=== PATIENT | female | born 1960 ===

== ENCOUNTER 2018-11-06 21:10 | Inpatient (IN) | payer MEDICARE, BC ==
[~2018-11-06] VITALS: Ht 149.9 cm; Wt 42.6 kg
[2018-11-06 21:10] VITALS: BP 151/61
--- NOTE | 2018-11-06 21:10 | Emergency Room Report ---
History of Present Illness General Source: Patient Present Illness HPI Patient is a 58-year-old female presented after malfunctioning of dialysis catheter. Patient reportedly had been dialyzed Sunday and Sunday and had dialysis today. Patient was noted to have dialysis access to the left femoral area. This had apparently become nonfunctional. Patient was noted to have prior history of end-stage renal disease. Allergies: Coded Allergies: No Known Allergies (Unverified , 11/06/18) Patient History Past Medical History: see triage record Reviewed Nursing Documentation: PMH: Agreed; PSxH: Agreed Review of Systems All Other Systems: limited - by poor historian Physical Exam General Appearance: alert, Chronically Ill ENT: moist mucus membranes Neck: limited range of motion Respiratory: normal inspection, lungs clear Cardiovascular #1: normal inspection, regular rate, rhythm Gastrointestinal: normal inspection Musculoskeletal: swelling - left upper extremity edema Neurologic: alert, motor weakness Psychiatric: normal inspection Skin: other - decubitus ulcer Medical Decision Making Diagnostic Impression: Primary Impression: ESRD (end stage renal disease) on dialysis Additional Impressions: Hypokalemia Anemia ER Course Patient presented for generalized weakness. Differential diagnosis includes is not limited to anemia, hyperkalemia, fracture, DVT among others. Because of complexity of patient's case laboratory testing and imaging studies were ordered.Patient was noted to have hypokalemia on laboratory testing. Dr. Palmer was contacted for Dr. Jones for inpatient observation due to dialysis access malfunction and hypokalemia. Labs Test 11/06/18 21:55 White Blood Count 10.6 K/UL (4.8-10.8) Red Blood Count 2.37 M/UL (4.20-5.40) Hemoglobin 7.0 G/DL (12.0-16.0) Hematocrit 21.4 % (37.0-47.0) Mean Corpuscular Volume 90 FL (80-99) Mean Corpuscular Hemoglobin 29.5 PG (27.0-31.0) Mean Corpuscular Hemoglobin Concent 32.8 G/DL (32.0-36.0) Red Cell Distribution Width 14.5 % (11.6-14.8) Platelet Count 213 K/UL (150-450) Mean Platelet Volume 5.6 FL (6.5-10.1) Neutrophils (%) (Auto) % (45.0-75.0) Lymphocytes (%) (Auto) % (20.0-45.0) Monocytes (%) (Auto) % (1.0-10.0) Eosinophils (%) (Auto) % (0.0-3.0) Basophils (%) (Auto) % (0.0-2.0) Differential Total Cells Counted 100 Neutrophils % (Manual) 82 % (45-75) Lymphocytes % (Manual) 9 % (20-45) Monocytes % (Manual) 7 % (1-10) Eosinophils % (Manual) 1 % (0-3) Basophils % (Manual) 1 % (0-2) Band Neutrophils 0 % (0-8) Platelet Estimate Adequate Platelet Morphology Normal Hypochromasia 1+ Anisocytosis 1+ Sodium Level 135 MMOL/L (136-145) Potassium Level 2.2 MMOL/L (3.5-5.1) Chloride Level 98 MMOL/L (98-107) Carbon Dioxide Level 28 MMOL/L (21-32) Anion Gap 8 mmol/L (5-15) Blood Urea Nitrogen 10 mg/dL (7-18) Creatinine 0.8 MG/DL (0.55-1.30) Estimat Glomerular Filtration Rate > 60 mL/min (>60) Glucose Level 145 MG/DL (74-106) Calcium Level 8.3 MG/DL (8.5-10.1) Total Bilirubin 0.3 MG/DL (0.2-1.0) Aspartate Amino Transf (AST/SGOT) 22 U/L (15-37) Alanine Aminotransferase (ALT/SGPT) 28 U/L (12-78) Alkaline Phosphatase 125 U/L (46-116) Troponin I 0.019 ng/mL (0.000-0.056) Total Protein 6.8 G/DL (6.4-8.2) Albumin 2.1 G/DL (3.4-5.0) Globulin 4.7 g/dL Albumin/Globulin Ratio 0.4 (1.0-2.7) EKG Diagnostic Results Rate: normal Rhythm: NSR ST Segments: no acute changes Status: unchanged Disposition: PLACE IN OBSERVATION Condition: Stable Jase Roberts MD Nov 06, 2018 21:10
--- NOTE | 2018-11-06 21:10 | NUR ---
ED Nurse Note: Patient ERIC Medina #14 c/o clogged dialysis catheter in left femoral. Patient completed dialysis today at [facility]. patient presents weith a sweollen left hand that extends all the way to the forearm, patient is awake however is slow to respond to questions. patient has a pressure ulcer located on the lower coccyx, performed wound care by changing dressing and picture taken.
--- NOTE | 2018-11-06 21:15 | NUR ---
ED Nurse Note: upon further skin inspection, patient presents with a g tube and an ostomy bag located on the left lower abdomen
[2018-11-06 22:17] LABS: HEMATOCRIT 21.4 % (37.0-47.0); MEAN CORPUSCULAR VOLUME 90 FL (80-99); PLATELET COUNT 213 K/UL (150-450); RED BLOOD COUNT 2.37 M/UL (4.20-5.40); RED CELL DISTRIBUTION WIDTH 14.5 % (11.6-14.8); WHITE BLOOD COUNT 10.6 K/UL (4.8-10.8)
[2018-11-06 22:26] LABS: ALANINE AMINOTRANSFERASE 28 U/L (12-78); ALBUMIN 2.1 G/DL (3.4-5.0); ALBUMIN/GLOBULIN RATIO 0.4 (1.0-2.7); ALKALINE PHOSPHATASE 125 U/L (46-116); ANION GAP 8 mmol/L (5-15); ASPARTATE AMINO TRANSFERASE 22 U/L (15-37); BILIRUBIN,TOTAL 0.3 MG/DL (0.2-1.0); BLOOD UREA NITROGEN 10 mg/dL (7-18); CALCIUM 8.3 MG/DL (8.5-10.1); CARBON DIOXIDE 28 MMOL/L (21-32); CHLORIDE 98 MMOL/L (98-107); CREATININE 0.8 MG/DL (0.55-1.30); SODIUM 135 MMOL/L (136-145)
[2018-11-06 22:29] LABS: POTASSIUM 2.2 MMOL/L (3.5-5.1)
[2018-11-06 23:22] VITALS: BP 136/46
--- NOTE | 2018-11-06 23:30 | NUR ---
TRANSFER TO FLOOR: Patient transferred to [facility] as ordered, Report given to PAULA Mendoza
[2018-11-06] MEDS ORDERED: PROMOD946 ML PO (23:42)
[2018-11-06] MEDS ORDERED: [UNRECOGNIZED DRUG - OTHER] MC (23:42)
[2018-11-06] MEDS ORDERED: CALCITRIOL1 MCG/1 ML IV (23:42)
[2018-11-06] MEDS ORDERED: LANSOPRAZOLE30 MG ORAL (23:42)
[2018-11-06] MEDS ORDERED: AMLODIPINE BESY10 MG ORAL (23:42)
[2018-11-06] MEDS ORDERED: HYDRALAZINE HCL10 MG ORAL (23:42)
[2018-11-06] MEDS ORDERED: RENA-VITE TABL0.8 M1 PO (23:42)
[2018-11-06] MEDS ORDERED: LEVEMIR FL100 UNIT/2 SQ (23:42)
[2018-11-06] MEDS ORDERED: ASCORBIC ACID500 MG ORAL (23:42)
[2018-11-06] MEDS ORDERED: FLEET ENEMA133 ML RECTAL (23:42)
[2018-11-06] MEDS ORDERED: ACIDOPHILUS1 EAC7 PO (23:42)
[2018-11-06 23:43] LABS: ALANINE AMINOTRANSFERASE 30 U/L (12-78); ALBUMIN 2.1 G/DL (3.4-5.0); ALBUMIN/GLOBULIN RATIO 0.4 (1.0-2.7); ALKALINE PHOSPHATASE 128 U/L (46-116); ANION GAP 10 mmol/L (5-15); ASPARTATE AMINO TRANSFERASE 24 U/L (15-37); BILIRUBIN,TOTAL 0.3 MG/DL (0.2-1.0); BLOOD UREA NITROGEN 11 mg/dL (7-18); CALCIUM 8.4 MG/DL (8.5-10.1); CARBON DIOXIDE 28 MMOL/L (21-32); CHLORIDE 99 MMOL/L (98-107); CREATININE 0.8 MG/DL (0.55-1.30); SODIUM 136 MMOL/L (136-145)
[2018-11-06 23:47] LABS: POTASSIUM 2.3 MMOL/L (3.5-5.1)
--- NOTE | 2018-11-06 23:55 | NUR ---
NURSE NOTES: Received report from Herve Miller RN. regarding patient arrival on TELE floor from ED. Belongings checked and listed at bedside with patient. AAO X2 with no S/S of acute pain or distress noted. IV line intact and patent SL. Patient arrived with GT and colostomy, both intact. Head to toe assessment done at bedside and noted sacral pressure ulcer st III. WC protocol initiated. Safety precaution in place; siderails x3 up, call light within reach, bed in lowest position, brakes and alarm on at all times. Needs and wants anticipated and attended. Will continue plan of care and monitor for any changes noted. Addendum: 11/07/18 at 0538 by ANTONY PECK RN Temporary Left femoral access confirmed. For HD use
[2018-11-07] VITALS (13 sets, daily range): BP systolic 121–142; BP diastolic 48–86
--- NOTE | 2018-11-07 00:20 | NUR ---
NURSE NOTES: Received call from MD. Kana and MD. Nando regarding patients arrival to the unit. New orders received and carried out. Will continue to monitor.
--- NOTE | 2018-11-07 00:25 | NUR ---
NURSE NOTES: Relayed reconciled meds and current labs to MD Nando. New orders received and carried out
[2018-11-07] MEDS ORDERED: HYDROcodone/Acetamin 5/325 tab GT PRN (01:15)
[2018-11-07] MEDS ORDERED: HEPARIN SO5000 UNIT2 SUBQ (01:49)
[2018-11-07] MEDS ORDERED: ZINC SULFATE220 M1 GT (01:49)
[2018-11-07] MEDS ORDERED: DULCOLAX10 MG RC (01:49)
[2018-11-07] MEDS ORDERED: LEVEMIR FL100 UNIT/1 SUBQ (01:49)
[2018-11-07] MEDS ORDERED: MILK OF MA400 MG/51 GT (01:49)
[2018-11-07] MEDS ORDERED: ATORVASTATIN CA80 MG ORAL (01:49)
[2018-11-07] MEDS ORDERED: DOCU LIQUI50 MG/5 M1 GT (01:49)
[2018-11-07] MEDS ORDERED: CITALOPRAM HBR10 M1 GT (01:49)
[2018-11-07] MEDS ORDERED: CALCIUM CARBON500 M1 GT (01:49)
[2018-11-07] MEDS ORDERED: ACETAMINOPHEN325 M1 GT (01:49)
[2018-11-07] MEDS ORDERED: HYDRALAZINE HC100 MG GT (01:51)
[2018-11-07] MEDS ORDERED: Milk of Magnesia 30ml Ud GT PRN (02:00)
[2018-11-07] MEDS ORDERED: CALCITRIOL0.25 MCG GT (02:04)
[2018-11-07] MEDS ORDERED: FLEET ENEMA133 ML RECTAL (02:58)
[2018-11-07] MEDS ORDERED: Fleet's Enema 133ml RECTAL PRN (03:00)
[2018-11-07] MEDS: NovoLOG Insulin Flexpen SUBQ SCH ×4 (06:44→21:33)
[2018-11-07 07:24] LABS: ANION GAP 10 mmol/L (5-15); BLOOD UREA NITROGEN 14 mg/dL (7-18); CALCIUM 7.9 MG/DL (8.5-10.1); CARBON DIOXIDE 26 MMOL/L (21-32); CHLORIDE 99 MMOL/L (98-107); CREATININE 1.1 MG/DL (0.55-1.30); SODIUM 135 MMOL/L (136-145)
[2018-11-07 07:26] LABS: POTASSIUM 2.4 MMOL/L (3.5-5.1)
--- NOTE | 2018-11-07 07:35 | NUR ---
NURSE NOTES: Called and left message for Daniel Zamorano (Spouse) regarding obtaining consent for AV shunt placement. Left contact info and a brief message regarding the procedure. Will continue to monitor
--- NOTE | 2018-11-07 07:44 | NUR ---
HAND-OFF: Report given to Ninfa Bradley RN. patient in stable condition, endorsed plan of care.
--- NOTE | 2018-11-07 07:45 | NUR ---
NURSING NOTE: Bedside report received from Reji MITCHELL. patient A/O x 1, resting with open eyes. no s/s of pain and agitation noted at this time. patient is on 3 L oxygen via N/C sating 96%. pateint scheduled for AV shunt placement.refractory mixer nurse Called and left message for Daniel Zamorano (Spouse) to obtain consent for AV shunt placement. Will continue to monitor
--- NOTE | 2018-11-07 08:15 | NUR ---
Called and left message for Daniel Zamorano (Spouse) to obtain consent for AV shunt placement and waiting for call back
[2018-11-07] MEDS: Docusate 100mg/10ml Liq GT SCH ×2 (08:19→21:29)
[2018-11-07] MEDS: Zinc Sulfate 220mg cap GT SCH ×2 (08:19→21:30)
[2018-11-07] MEDS: Ascorbic Acid 500mg tab GT SCH (08:19)
[2018-11-07] MEDS: Nephrovite tab (Rena-Vite) GT SCH (08:20)
[2018-11-07] MEDS: Tums 500mg GT SCH (08:20)
[2018-11-07] MEDS ORDERED: Calcitriol 0.5mcg Cap GT SCH (09:00)
[2018-11-07] MEDS ORDERED: Fleet's Enema 133ml RECTAL SCH (09:00)
--- NOTE | 2018-11-07 10:01 | Pre-Procedure Note/Attestation ---
Pre-Procedure Note/Attestation Complete Prior to Procedure Planned Procedure: right Procedure Narrative: dialysis shunt placement in right arm; possible dialysis catheter replacement Indications for Procedure Pre-Operative Diagnosis: ESRD; thrombosed old dialysis shunts Attestation I attest that I discussed the nature of the procedure; its benefits; risks and complications; and alternatives (and the risks and benefits of such alternatives ), prior to the procedure, with the patient (or the patient's legal telecommunications sales representative). I attest that, if there was a reasonable possibility of needing a blood transfusion, the patient (or the patient's legal telecommunications sales representative) was given the [facility] standardized written summary, pursuant to the [place] Blood Safety Act ([place] Health and Safety Code # 1645, as amended). I attest that I re-evaluated the patient just prior to the surgery and that there has been no change in the patient's H&P, except as documented below: Heber Roger MD Nov 07, 2018 10:01
--- NOTE | 2018-11-07 11:34 | NUR ---
CASE MANAGEMENT:REVIEW 58 YR OLD FEMALE BIBA FROM [facility] ON HA CC: LT FEMORAL CLOGGED DIALYSIS CATHETER. SWOLLEN LEFT HAND THAT EXTENDS TO FOREARM PMH: ESRD ON HD @ [facility]. GTUBE. OSTOMY BAG SI: HYPOKALEMIA. ANEMIA 98.3 86 16 151/61 98% ON 3L/NC K-2.2 H/H-7.0/21.4 IS: TYLENOL PO X1 KCL 40MEQ X2 : TO TELEMETRY IS: TRANSFUSE 2 UNITS PRBC'S Addendum: 11/07/18 at 1203 by BELL SIERRA LVN LVN INTERQUAL CRITERIA MET
--- NOTE | 2018-11-07 12:06 | Diagnostic Imaging Report ---
APPROVED REPORT CPT Code: G0365 Present Symptoms Comments: Pre-op for AVG or AVF Vein Measurements(cm) Cephalic Basilic Right LeftRight Left 0.25Upper ArmMid Upper Arm0.41 0.20Mid Upper ArmAntecubital Fossa0.43 Upper Forearm0.17 0.24Antecubital FossaWrist VEIN MAPPING: The right cephalic and left basilic veins were imaged and measured to evaluate as a potential graft for dialysis access. RIGHT UPPER EXTREMITY: Imaging reveals patency of the deep venous system and brachial, radial and ulnar arteries. The right cephalic vein was measured. The right basilic (stented) vein is occluded. There is also an occluded graft noted at the upper arm level. LEFT UPPER EXTREMITY: Imaging reveals patency of the deep venous system and brachial, radial and ulnar arteries. The right cephalic vein was thrombosed. The left basilic vein is patent. There is also an occluded arterio-venous fistula noted at the upper arm. The left arm has severe edema, at the upper arm and fore arm level.
[2018-11-07] MEDS ORDERED: Heparin 5000 units/ml inj SUBQ ONE (12:12)
[2018-11-07] MEDS ORDERED: NS 500ML IVPB ONE (12:12)
[2018-11-07] MEDS ORDERED: NS Irrig 1000ml IRRIG ONE (12:12)
[2018-11-07] MEDS ORDERED: Bupivacaine 0.25% Inj 30ml INJ ONE (12:12)
[2018-11-07] MEDS ORDERED: Lidocaine 1% Plain 30 ml INJ ONE (12:12)
--- NOTE | 2018-11-07 13:33 | Anethesia Preoperative Eval ---
Anesthesia Pre-op PMH/ROS General Date of Evaluation: Nov 07, 2018 Time of Evaluation: 11:45 Anesthesiologist: Kaylee Knox CRNA ASA Score: ASA 4 Mallampati Score Class I : Soft palate, uvula, fauces, pillars visible Class II: Soft palate, uvula, fauces visible Class III: Soft palate, base of uvula visible Class IV: Only hard plate visible Mallampati Classification: Class II Surgeon: Kana Diagnosis: Malfunctioning dialysis fistula Surgical Procedure: RIGHT arm A-V fistula Anesthesia History: none Family History: no anesthesia problems Allergies: Coded Allergies: No Known Allergies (Unverified , 11/06/18) Medications: see eMAR Patient NPO?: Yes NPO Date: Nov 07, 2018 NPO Time: 0000 Past Medical History Cardiovascular: Reports: HTN; Denies: CAD, HI, valve dz, arrhythmia, other Pulmonary: Reports: asthma; Denies: COPD, DESIRE, other Gastrointestinal/Genitourinary: Reports: GERD, ESRD - HD q MWF; Denies: CRI, other Neurologic/Psychiatric: Reports: depression/anxiety; Denies: dementia, CVA, TIA, other Endocrine: Reports: DM; Denies: hypothyroidism, steroids, other HEENT: Denies: cataract (L), cataract (R), glaucoma, IROQUOIS (L), IROQUOIS (R), other Hematology/Immune: Reports: anemia - severe anemia, blood transfusion running in preop, other - hypokalemia; Denies: DVT, bleeding disorder Musculoskeletal/Integumentary: Reports: other - lower extremity weakness, severe cachexia; Denies: OA, RA, DJD, DDD, edema PMH Narrative: as noted above PSxH Narrative: ex lap, bowel resection, colostomy Anesthesia Pre-op Phys. Exam Physician Exam Last Vital Signs Date Time Temp Pulse Resp B/P (MAP) Pulse Ox O2 Delivery O2 Flow Rate FiO2 11/07/18 12:39 98.5 84 18 140/86 (104) 96 11/07/18 12:29 Non-Rebreather 11/07/18 00:35 3.0 Constitutional: NAD Neurologic: other - obtunded Cardiovascular: RRR Respiratory: CTA, other - NCO2 Gastrointestinal: S/NT/ND Airway Exam Mallampati Score: Class II MO: full Neck: stiff TMD: 3 FB ROM: full Teeth: intact Dentures: no upper, no lower Anesthesia Pre-op A/P Labs Hematology Test 11/06/18 21:55 White Blood Count 10.6 K/UL (4.8-10.8) Red Blood Count 2.37 M/UL (4.20-5.40) L Hemoglobin 7.0 G/DL (12.0-16.0) L Hematocrit 21.4 % (37.0-47.0) L Mean Corpuscular Volume 90 FL (80-99) Mean Corpuscular Hemoglobin 29.5 PG (27.0-31.0) Mean Corpuscular Hemoglobin Concent 32.8 G/DL (32.0-36.0) Red Cell Distribution Width 14.5 % (11.6-14.8) Platelet Count 213 K/UL (150-450) Mean Platelet Volume 5.6 FL (6.5-10.1) L Neutrophils (%) (Auto) % (45.0-75.0) Lymphocytes (%) (Auto) % (20.0-45.0) Monocytes (%) (Auto) % (1.0-10.0) Eosinophils (%) (Auto) % (0.0-3.0) Basophils (%) (Auto) % (0.0-2.0) Differential Total Cells Counted 100 Neutrophils % (Manual) 82 % (45-75) H Lymphocytes % (Manual) 9 % (20-45) L Monocytes % (Manual) 7 % (1-10) Eosinophils % (Manual) 1 % (0-3) Basophils % (Manual) 1 % (0-2) Band Neutrophils 0 % (0-8) Platelet Estimate Adequate Platelet Morphology Normal Hypochromasia 1+ Anisocytosis 1+ Coagulation Test 11/07/18 05:55 Prothrombin Time 10.3 SEC (9.30-11.50) Prothromb Time International Ratio 1.0 (0.9-1.1) Activated Partial Thromboplast Time 28 SEC (23-33) Chemistry Test 11/06/18 21:55 11/06/18 23:10 11/07/18 05:55 11/07/18 11:28 Sodium Level 135 MMOL/L (136-145) L 136 MMOL/L (136-145) 135 MMOL/L (136-145) L Potassium Level 2.2 MMOL/L (3.5-5.1) *L 2.3 MMOL/L (3.5-5.1) *L 2.4 MMOL/L (3.5-5.1) *L 2.8 MMOL/L (3.5-5.1) L Chloride Level 98 MMOL/L (98-107) 99 MMOL/L (98-107) 99 MMOL/L (98-107) Carbon Dioxide Level 28 MMOL/L (21-32) 28 MMOL/L (21-32) 26 MMOL/L (21-32) Anion Gap 8 mmol/L (5-15) 10 mmol/L (5-15) 10 mmol/L (5-15) Blood Urea Nitrogen 10 mg/dL (7-18) 11 mg/dL (7-18) 14 mg/dL (7-18) Creatinine 0.8 MG/DL (0.55-1.30) 0.8 MG/DL (0.55-1.30) 1.1 MG/DL (0.55-1.30) Estimat Glomerular Filtration Rate > 60 mL/min (>60) > 60 mL/min (>60) 50.7 mL/min (>60) Glucose Level 145 MG/DL (74-106) H 167 MG/DL (74-106) H 141 MG/DL (74-106) H Calcium Level 8.3 MG/DL (8.5-10.1) L 8.4 MG/DL (8.5-10.1) L 7.9 MG/DL (8.5-10.1) L Total Bilirubin 0.3 MG/DL (0.2-1.0) 0.3 MG/DL (0.2-1.0) Aspartate Amino Transf (AST/SGOT) 22 U/L (15-37) 24 U/L (15-37) Alanine Aminotransferase (ALT/SGPT) 28 U/L (12-78) 30 U/L (12-78) Alkaline Phosphatase 125 U/L (46-116) H 128 U/L (46-116) H Troponin I 0.019 ng/mL (0.000-0.056) Total Protein 6.8 G/DL (6.4-8.2) 6.9 G/DL (6.4-8.2) Albumin 2.1 G/DL (3.4-5.0) L 2.1 G/DL (3.4-5.0) L Globulin 4.7 g/dL 4.8 g/dL Albumin/Globulin Ratio 0.4 (1.0-2.7) L 0.4 (1.0-2.7) L Hemoglobin A1c 7.3 % (4.3-6.0) H Accucheck 168 Studies Pre-op Studies: EKG - SR Risk Assessment & Plan Assessment: ASA 4, ok to proceed Plan: MAC Status Change Before Surgery: No Pre-Antibiotics Drug: Kaylee Oquendo CRNA Nov 07, 2018 13:33
[2018-11-07] MEDS ORDERED: Hydromorphone 0.5mg/0.5ml inj IVP PRN (13:45)
--- NOTE | 2018-11-07 13:58 | NUR ---
RD ASSESSMENT & RECOMMENDATIONS SEE CARE ACTIVITY FOR COMPLETE ASSESSMENT DAILY ESTIMATED NEEDS: Needs based on ESRD on HD, wound 39.5kg 35-40 kcals/kg 0323-4776 total kcals 1.25-1.8 g protein/kg 49-71 g total protein Fluid per MD, on HD NUTRITION DIAGNOSIS: 1) Increased kcal and protein needs r/t wound healing and renal dysfunction as evidenced by pt w/ stage 3 sacral wound, w/ ESRD on HD 2) Swallowing difficulty r/t dysphagia as evidenced by pt is GT dep CURRENT TF: NPO ENTERAL NUTRITION RECOMMENDATIONS: NEPRO @35ml/hr x24 hrs to provide 840ml, 1512 kcal, 68g prot (1.7), 611ml free H2O - As medically able rec NEPRO @15ml/hr for 6 hrs. Advance as tolerated 10ml/hr q4-6 hrs to goal. - Flush per MD, HOB over 30 degrees ADDITIONAL RECOMMENDATIONS: 1) Obtain Calibrated bed scale wts PER SNF (11/06/18): HT 60 inches, WT 87# (39.5kg) 2) WOUND CARE: Add RAFAEL BID (2.5g pro each) Cont to add Nephrovite and Vit C daily 3) TF recs as above
--- NOTE | 2018-11-07 14:20 | Brief Operative Note ---
Immediate Post Operative Note Operative Note Pre-op Diagnosis: ESRD; thrombosed old dialysis shunts Procedure: right brachiocephalic AVF creation Post-op Diagnosis: same as pre-op Findings: consistent w/pre-op dx studies Surgeon: Kermit Roger Anesthesiologist: Monserrat Knox CRNA Anesthesia: MAC Specimen: none Complications: none Condition: stable Fluids: see anesth. record Estimated Blood Loss: minimal Drains: none Implant(s) used?: No Heber Roger MD Nov 07, 2018 14:20
--- NOTE | 2018-11-07 14:26 | Immediate Post-Op Evaluation ---
Immediate Post-Op Evalulation Immediate Post-Op Evalulation Procedure: RIGHT arm A-V shunt placement Date of Evaluation: Nov 07, 2018 Time of Evaluation: 14:15 IV Fluids: 0.9NS with 20 meq KCl/L 150 ml Blood Products: 250 ml Estimated Blood Loss: 100 ml Blood Pressure Systolic: 124 Blood Pressure Diastolic: 52 Pulse Rate: 78 Respiratory Rate: 12 O2 Sat by Pulse Oximetry: 99 Temperature (Fahrenheit): 99.5 Pain Score (1-10): 0 Nausea: No Vomiting: No Complications none Patient Status: awake, reacts, patent Hydration Status: adequate Drug: cefazolin 1000 mg IV Given Within 1 Hr of Incision: Yes Time Given: 12:30 Kaylee Knox CRNA Nov 07, 2018 14:26
--- NOTE | 2018-11-07 14:39 | History & Physical ---
History and Physical History & Physicial Present Illness HPI Patient is a 58-year-old female presented after malfunctioning of dialysis catheter. Patient reportedly had been dialyzed Sunday and Sunday and had dialysis today. Patient was noted to have dialysis access to the left femoral area. This had apparently become nonfunctional. Patient was noted to have prior history of end-stage renal disease. Allergies: Coded Allergies: No Known Allergies (Unverified , 11/06/18) Patient History Past Medical History: see triage record Reviewed Nursing Documentation: PMH: Agreed; PSxH: Agreed Review of Systems All Other Systems: limited - by poor historian Physical Exam General Appearance: alert, Chronically Ill ENT: moist mucus membranes Neck: limited range of motion Respiratory: normal inspection, lungs clear Cardiovascular #1: normal inspection, regular rate, rhythm Gastrointestinal: normal inspection Musculoskeletal: swelling - left upper extremity edema, atrophied extre Neurologic: alert, motor weakness Psychiatric: normal inspection Skin: other - decubitus ulcer Lab: Dated November 06 reviewed Meds: Reviewed and reconciled in the chart A/P: 1- ESRD, h.o of , creation of AVF by Vascular Sx 2- Hypokalemia 3- Anemia-Acute 4- Chronic ecephalmalacia 5- DM Plan: Check Anemia panel Potassium supplementation Will monitor labs Nephrology, Dr Hodge will follow D/W Vascular Sx for creation of AVF Umer Collier MD Nov 07, 2018 14:39
--- NOTE | 2018-11-07 14:42 | General Progress Note ---
Assessment/Plan Assessment/Plan: S: not verbally communicative, O: patient seen in [facility]-op area. Denies any chest pain or sob General Appearance: alert, Chronically Ill ENT: moist mucus membranes Neck: limited range of motion Respiratory: normal inspection, lungs clear Cardiovascular #1: normal inspection, regular rate, rhythm Gastrointestinal: normal inspection Musculoskeletal: swelling - left upper extremity edema Neurologic: alert, motor weakness Psychiatric: normal inspection Skin: other - decubitus ulcer Lab: Dated November 06 reviewed Meds: Reviewed and reconciled in the chart A/P: 1- ESRD, h.o of , creation of AVF by Vascular Sx 2- Hypokalemia 3- Anemia-Acute Plan: Check Anemia panel Potassium supplementation S/P creation of AVF Subjective Allergies: Coded Allergies: No Known Allergies (Unverified , 11/06/18) Objective Last 24 Hour Vital Signs Date Time Temp Pulse Resp B/P (MAP) Pulse Ox O2 Delivery O2 Flow Rate FiO2 11/07/18 14:26 78 12 99 11/07/18 12:39 98.5 84 18 140/86 (104) 96 11/07/18 12:29 Non-Rebreather 11/07/18 08:22 84 143/71 11/07/18 04:00 98.1 82 18 136/78 (97) 96 11/07/18 04:00 69 11/07/18 00:35 Nasal Cannula 3.0 11/07/18 00:00 99.0 80 20 142/84 (103) 96 11/07/18 00:00 84 11/06/18 23:30 98.4 11/06/18 23:30 98.4 82 18 136/46 100 Room Air 3.0 11/06/18 23:22 98.4 86 18 136/46 98 Room Air 11/06/18 21:10 86 16 Nasal Cannula 3.0 11/06/18 21:10 98.2 85 16 151/61 98 Nasal Cannula 3.0 11/06/18 21:07 98.2 86 16 151/61 98 Nasal Cannula 3.0 Intake and Output 11/06/18 11/07/18 19:00 07:00 Intake Total 100 ml Balance 100 ml Intake Oral 50 ml Free Water 50 ml Laboratory Tests 11/06/18 21:55: White Blood Count 10.6, Red Blood Count 2.37L, Hemoglobin 7.0L, Hematocrit 21.4L , Mean Corpuscular Volume 90, Mean Corpuscular Hemoglobin 29.5, Mean Corpuscular Hemoglobin Concent 32.8, Red Cell Distribution Width 14.5, Platelet Count 213, Mean Platelet Volume 5.6L, Neutrophils (%) (Auto) , Lymphocytes (%) ( Auto) , Monocytes (%) (Auto) , Eosinophils (%) (Auto) , Basophils (%) (Auto) , Differential Total Cells Counted 100, Neutrophils % (Manual) 82H, Lymphocytes % (Manual) 9L, Monocytes % (Manual) 7, Eosinophils % (Manual) 1, Basophils % ( Manual) 1, Band Neutrophils 0, Platelet Estimate Adequate, Platelet Morphology Normal, Hypochromasia 1+, Anisocytosis 1+, Sodium Level 135L, Potassium Level 2.2*L, Chloride Level 98, Carbon Dioxide Level 28, Anion Gap 8, Blood Urea Nitrogen 10, Creatinine 0.8, Estimat Glomerular Filtration Rate > 60, Glucose Level 145H, Calcium Level 8.3L, Total Bilirubin 0.3, Aspartate Amino Transf (AST /SGOT) 22, Alanine Aminotransferase (ALT/SGPT) 28, Alkaline Phosphatase 125H, Troponin I 0.019, Total Protein 6.8, Albumin 2.1L, Globulin 4.7, Albumin/ Globulin Ratio 0.4L 11/06/18 23:10: Sodium Level 136, Potassium Level 2.3*L, Chloride Level 99, Carbon Dioxide Level 28, Anion Gap 10, Blood Urea Nitrogen 11, Creatinine 0.8, Estimat Glomerular Filtration Rate > 60, Glucose Level 167H, Calcium Level 8.4L, Total Bilirubin 0.3, Aspartate Amino Transf (AST/SGOT) 24, Alanine Aminotransferase ( ALT/SGPT) 30, Alkaline Phosphatase 128H, Total Protein 6.9, Albumin 2.1L, Globulin 4.8, Albumin/Globulin Ratio 0.4L 11/07/18 05:55: Sodium Level 135L, Potassium Level 2.4*L, Chloride Level 99, Carbon Dioxide Level 26, Anion Gap 10, Blood Urea Nitrogen 14, Creatinine 1.1, Estimat Glomerular Filtration Rate 50.7, Glucose Level 141H, Calcium Level 7.9L, Prothrombin Time 10.3, Prothromb Time International Ratio 1.0, Activated Partial Thromboplast Time 28, Hemoglobin A1c 7.3H 11/07/18 11:28: Potassium Level 2.8L Height (Feet): 4 Height (Inches): 11.00 Weight (Pounds): 84 Umer Collier MD Nov 07, 2018 14:42
--- NOTE | 2018-11-07 18:02 | Consultation ---
History of Present Illness General Chief Complaint: General Complaint Present Illness Allergies: Coded Allergies: No Known Allergies (Unverified , 11/06/18) Medication History Scheduled Amlodipine Besylate* (Amlodipine Besylate*), 10 MG ORAL DAILY, (Reported) Ascorbic Acid* (Ascorbic Acid*), 500 MG ORAL DAILY, (Reported) Atorvastatin Calcium* (Lipitor*), 80 MG ORAL BEDTIME, (Reported) Calcitriol (Calcitriol), 0.5 MCG GT DAILY, (Reported) Calcium Carbonate (Calcium Carbonate), 500 MG GT DAILY, (Reported) Citalopram Hydrobromide* (Citalopram Hbr*), 10 MG GT DAILY, (Reported) Docusate Sodium (Docu Liquid), 50 MG GT Q12HR, (Reported) Heparin Sod (Porcine) (Heparin Sodium*), 5,000 UNITS SUBQ EVERY 12 HOURS, ( Reported) Hydralazine Hcl* (Hydralazine Hcl*), 100 MG GT EVERY 8 HOURS, (Reported) Insulin Detemir (Levemir Flexpen), 20 UNITS SUBQ HS, (Reported) Lansoprazole* (Lansoprazole*), 30 MG ORAL DAILY, (Reported) Na Phos,M-B/Na Phos,Di-Ba* (Fleet Enema*), 133 ML RECTAL DAILY, (Reported) Zinc Sulfate (Zinc Sulfate*), 220 MG GT Q12HR, (Reported) Scheduled PRN Acetaminophen* (Acetaminophen 325MG Tablet*), 650 MG GT Q4H PRN for Mild Pain/ Temp > 100.5, (Reported) Bisacodyl (Dulcolax), 10 MG RC DAILY PRN for Constipation, (Reported) Magnesium Hydroxide* (Milk Of Magnesia*), 30 ML GT DAILY PRN for Constipation, ( Reported) Na Phos,M-B/Na Phos,Di-Ba* (Fleet Enema*), 133 ML RECTAL Q72H PRN for cons, ( Reported) Miscellaneous Medications Balsam Stalin ([place] Citizen Balsam), 113 GM MC, (Reported) Folic Acid/Vitamin B Comp W-C (Gayle-Mode Tablet), 0.8 MG PO, (Reported) Lactobacillus Acidophilus (Acidophilus), 1 EACH PO, (Reported) Protein Supplement (Promod), 946 ML PO, (Reported) Patient History Healthcare decision maker Daniel Zamorano Resuscitation status Full Code Advanced Directive on File Yes Physical Exam Last 24 Hour Vital Signs Date Time Temp Pulse Resp B/P (MAP) Pulse Ox O2 Delivery O2 Flow Rate FiO2 11/07/18 17:10 97.9 83 16 126/55 (78) 96 11/07/18 16:00 80 11/07/18 15:15 98.2 73 15 123/55 100 Nasal Cannula 3 11/07/18 15:00 71 14 125/59 100 Nasal Cannula 3 11/07/18 14:55 75 15 121/50 100 Nasal Cannula 3 11/07/18 14:50 76 16 127/52 100 Nasal Cannula 3 11/07/18 14:40 73 14 129/48 100 Nasal Cannula 3 11/07/18 14:30 76 17 125/54 100 Nasal Cannula 3 11/07/18 14:26 78 12 99 11/07/18 14:20 75 15 123/52 100 Nasal Cannula 3 11/07/18 14:15 99.5 78 12 124/53 99 Nasal Cannula 3 11/07/18 12:39 98.5 84 18 140/86 (104) 96 11/07/18 12:29 Non-Rebreather 11/07/18 08:22 84 143/71 11/07/18 08:00 81 11/07/18 04:00 98.1 82 18 136/78 (97) 96 11/07/18 04:00 69 11/07/18 00:35 Nasal Cannula 3.0 11/07/18 00:00 99.0 80 20 142/84 (103) 96 11/07/18 00:00 84 11/06/18 23:30 98.4 11/06/18 23:30 98.4 82 18 136/46 100 Room Air 3.0 11/06/18 23:22 98.4 86 18 136/46 98 Room Air 11/06/18 21:10 86 16 Nasal Cannula 3.0 11/06/18 21:10 98.2 85 16 151/61 98 Nasal Cannula 3.0 11/06/18 21:07 98.2 86 16 151/61 98 Nasal Cannula 3.0 Intake and Output 11/06/18 11/07/18 18:59 06:59 Intake Total 100 ml Balance 100 ml Intake Oral 50 ml Free Water 50 ml Laboratory Tests Test 11/06/18 21:55 11/06/18 23:10 11/07/18 05:55 11/07/18 11:28 White Blood Count 10.6 K/UL (4.8-10.8) Red Blood Count 2.37 M/UL (4.20-5.40) L Hemoglobin 7.0 G/DL (12.0-16.0) L Hematocrit 21.4 % (37.0-47.0) L Mean Corpuscular Volume 90 FL (80-99) Mean Corpuscular Hemoglobin 29.5 PG (27.0-31.0) Mean Corpuscular Hemoglobin Concent 32.8 G/DL (32.0-36.0) Red Cell Distribution Width 14.5 % (11.6-14.8) Platelet Count 213 K/UL (150-450) Mean Platelet Volume 5.6 FL (6.5-10.1) L Neutrophils (%) (Auto) % (45.0-75.0) Lymphocytes (%) (Auto) % (20.0-45.0) Monocytes (%) (Auto) % (1.0-10.0) Eosinophils (%) (Auto) % (0.0-3.0) Basophils (%) (Auto) % (0.0-2.0) Differential Total Cells Counted 100 Neutrophils % (Manual) 82 % (45-75) H Lymphocytes % (Manual) 9 % (20-45) L Monocytes % (Manual) 7 % (1-10) Eosinophils % (Manual) 1 % (0-3) Basophils % (Manual) 1 % (0-2) Band Neutrophils 0 % (0-8) Platelet Estimate Adequate Platelet Morphology Normal Hypochromasia 1+ Anisocytosis 1+ Sodium Level 135 MMOL/L (136-145) L 136 MMOL/L (136-145) 135 MMOL/L (136-145) L Potassium Level 2.2 MMOL/L (3.5-5.1) *L 2.3 MMOL/L (3.5-5.1) *L 2.4 MMOL/L (3.5-5.1) *L 2.8 MMOL/L (3.5-5.1) L Chloride Level 98 MMOL/L (98-107) 99 MMOL/L (98-107) 99 MMOL/L (98-107) Carbon Dioxide Level 28 MMOL/L (21-32) 28 MMOL/L (21-32) 26 MMOL/L (21-32) Anion Gap 8 mmol/L (5-15) 10 mmol/L (5-15) 10 mmol/L (5-15) Blood Urea Nitrogen 10 mg/dL (7-18) 11 mg/dL (7-18) 14 mg/dL (7-18) Creatinine 0.8 MG/DL (0.55-1.30) 0.8 MG/DL (0.55-1.30) 1.1 MG/DL (0.55-1.30) Estimat Glomerular Filtration Rate > 60 mL/min (>60) > 60 mL/min (>60) 50.7 mL/min (>60) Glucose Level 145 MG/DL (74-106) H 167 MG/DL (74-106) H 141 MG/DL (74-106) H Calcium Level 8.3 MG/DL (8.5-10.1) L 8.4 MG/DL (8.5-10.1) L 7.9 MG/DL (8.5-10.1) L Total Bilirubin 0.3 MG/DL (0.2-1.0) 0.3 MG/DL (0.2-1.0) Aspartate Amino Transf (AST/SGOT) 22 U/L (15-37) 24 U/L (15-37) Alanine Aminotransferase (ALT/SGPT) 28 U/L (12-78) 30 U/L (12-78) Alkaline Phosphatase 125 U/L (46-116) H 128 U/L (46-116) H Troponin I 0.019 ng/mL (0.000-0.056) Total Protein 6.8 G/DL (6.4-8.2) 6.9 G/DL (6.4-8.2) Albumin 2.1 G/DL (3.4-5.0) L 2.1 G/DL (3.4-5.0) L Globulin 4.7 g/dL 4.8 g/dL Albumin/Globulin Ratio 0.4 (1.0-2.7) L 0.4 (1.0-2.7) L Prothrombin Time 10.3 SEC (9.30-11.50) Prothromb Time International Ratio 1.0 (0.9-1.1) Activated Partial Thromboplast Time 28 SEC (23-33) Hemoglobin A1c 7.3 % (4.3-6.0) H Height (Feet): 4 Height (Inches): 11.00 Weight (Pounds): 84 Medications Current Medications Medications (Trade) Dose Ordered Sig/Vineet Route PRN Reason Start Time Stop Time Status Last Admin Dose Admin Acetaminophen (Tylenol) 650 mg Q4H PRN GT Mild Pain/Temp > 100.5 11/07/18 01:15 12/07/18 01:14 Acetaminophen/ Hydrocodone Bitart ([place] 5/325) 1 tab TID PRN GT Moderate Pain (Pain Scale 4-6) 11/07/18 01:15 11/14/18 01:14 Amlodipine Besylate (Norvasc) 10 mg DAILY GT 11/07/18 09:00 12/07/18 08:59 11/07/18 08:22 Ascorbic Acid (Vitamin C) 500 mg DAILY GT 11/07/18 09:00 12/07/18 08:59 11/07/18 08:19 Atorvastatin Calcium (Lipitor) 80 mg BEDTIME GT 11/07/18 21:00 12/07/18 20:59 Bisacodyl (Dulcolax) 10 mg DAILY PRN RECTAL Constipation 11/07/18 02:30 12/07/18 01:59 Calcitriol (Rocaltrol) 0.5 mcg DAILY GT 11/07/18 09:00 12/07/18 08:59 Calcium Carbonate (Tums) 500 mg DAILY GT 11/07/18 09:00 12/07/18 08:59 11/07/18 08:20 Dextrose (Dextrose 50%) 25 ml Q30M PRN IV Hypoglycemia 11/07/18 02:00 12/07/18 01:59 Dextrose (Dextrose 50%) 50 ml Q30M PRN IV Hypoglycemia 11/07/18 02:00 12/07/18 01:59 Docusate Sodium (Colace) 50 mg Q12HR GT 11/07/18 09:00 12/07/18 08:59 11/07/18 08:19 Heparin Sodium (Porcine) (Heparin 5000 units/ml) 5,000 units EVERY 12 HOURS SUBQ 4/25/19 21:00 12/07/18 20:59 Hydralazine HCl (Apresoline) 5 mg Q30M PRN IV SBP>160 OR___/DBP>90 OR___ 11/07/18 13:45 11/07/18 20:00 Hydromorphone HCl (Dilaudid) 0.5 mg Q15M PRN IVP Severe Pain (Pain Scale 7-10) 11/07/18 13:45 11/07/18 20:00 Insulin Aspart (NovoLOG) BEFORE MEALS AND HS SUBQ 11/07/18 06:30 12/07/18 06:29 11/07/18 06:44 Insulin Detemir (Levemir) 20 units QHS SUBQ 11/07/18 21:00 12/07/18 20:59 Lansoprazole (Prevacid) 30 mg DAILY GT 11/07/18 09:00 12/07/18 08:59 11/07/18 08:19 Magnesium Hydroxide (Mom) 30 ml DAILY PRN GT Constipation 11/07/18 02:00 12/07/18 01:59 Potassium Chloride (K-Dur) 40 meq Q4H ORAL 11/07/18 15:00 11/07/18 19:01 11/07/18 16:02 Sodium Phosphate (Fleet's Sodium Phosl Enema) 133 ml Q72H PRN RECTAL Constipation 11/07/18 03:00 12/07/18 02:59 Vitamin B Complex/ Vit C/Folic Acid (Nephrovite) 1 tab DAILY GT 11/07/18 09:00 12/07/18 08:59 11/07/18 08:20 Zinc Sulfate (Zinc Sulfate) 220 mg Q12HR GT 11/07/18 09:00 12/07/18 08:59 11/07/18 08:19 Assessment/Plan Assessment/Plan: Hematology Consult ANTHONY SANCHEZ: Portia Collier DOS: 11/07/18 RFC: Anemia evaluation, hgb 7 HPI Patient is a 58-year-old female presented after malfunctioning of dialysis catheter. Patient reportedly had been dialyzed Sunday and Sunday and had dialysis today. Patient was noted to have dialysis access to the left femoral area. This had apparently become nonfunctional. Patient was noted to have prior history of end-stage renal disease. Is here for creation of avd right bracheocephalic, vascular surgery has been consulted. Coded Allergies: No Known Allergies (Unverified , 11/06/18) Patient History Past Medical History: see triage record Reviewed Nursing Documentation: PMH: Agreed; PSxH: Agreed Review Of Systems: limited - by poor historian Pe General Appearance: alert, Chronically Ill ENT: moist mucus membranes Neck: limited range of motion Respiratory: normal inspection, lungs clear Cardiovascular: normal inspection, regular rate, rhythm Gastrointestinal: normal inspection Musculoskeletal: swelling - left upper extremity edema Neurologic: alert, motor weakness Psychiatric: normal inspection Skin: other - decubitus ulcer Laboratory Tests Test 11/06/18 21:55 11/06/18 23:10 11/07/18 05:55 11/07/18 11:28 White Blood Count 10.6 K/UL (4.8-10.8) Red Blood Count 2.37 M/UL (4.20-5.40) L Hemoglobin 7.0 G/DL (12.0-16.0) L Hematocrit 21.4 % (37.0-47.0) L Mean Corpuscular Volume 90 FL (80-99) Mean Corpuscular Hemoglobin 29.5 PG (27.0-31.0) Mean Corpuscular Hemoglobin Concent 32.8 G/DL (32.0-36.0) Red Cell Distribution Width 14.5 % (11.6-14.8) Platelet Count 213 K/UL (150-450) Mean Platelet Volume 5.6 FL (6.5-10.1) L Neutrophils (%) (Auto) % (45.0-75.0) Lymphocytes (%) (Auto) % (20.0-45.0) Monocytes (%) (Auto) % (1.0-10.0) Eosinophils (%) (Auto) % (0.0-3.0) Basophils (%) (Auto) % (0.0-2.0) Differential Total Cells Counted 100 Neutrophils % (Manual) 82 % (45-75) H Lymphocytes % (Manual) 9 % (20-45) L Monocytes % (Manual) 7 % (1-10) Eosinophils % (Manual) 1 % (0-3) Basophils % (Manual) 1 % (0-2) Band Neutrophils 0 % (0-8) Platelet Estimate Adequate Platelet Morphology Normal Hypochromasia 1+ Anisocytosis 1+ Sodium Level 135 MMOL/L (136-145) L 136 MMOL/L (136-145) 135 MMOL/L (136-145) L Potassium Level 2.2 MMOL/L (3.5-5.1) *L 2.3 MMOL/L (3.5-5.1) *L 2.4 MMOL/L (3.5-5.1) *L 2.8 MMOL/L (3.5-5.1) L Chloride Level 98 MMOL/L (98-107) 99 MMOL/L (98-107) 99 MMOL/L (98-107) Carbon Dioxide Level 28 MMOL/L (21-32) 28 MMOL/L (21-32) 26 MMOL/L (21-32) Anion Gap 8 mmol/L (5-15) 10 mmol/L (5-15) 10 mmol/L (5-15) Blood Urea Nitrogen 10 mg/dL (7-18) 11 mg/dL (7-18) 14 mg/dL (7-18) Creatinine 0.8 MG/DL (0.55-1.30) 0.8 MG/DL (0.55-1.30) 1.1 MG/DL (0.55-1.30) Estimat Glomerular Filtration Rate > 60 mL/min (>60) > 60 mL/min (>60) 50.7 mL/min (>60) Glucose Level 145 MG/DL (74-106) H 167 MG/DL (74-106) H 141 MG/DL (74-106) H Calcium Level 8.3 MG/DL (8.5-10.1) L 8.4 MG/DL (8.5-10.1) L 7.9 MG/DL (8.5-10.1) L Total Bilirubin 0.3 MG/DL (0.2-1.0) 0.3 MG/DL (0.2-1.0) Aspartate Amino Transf (AST/SGOT) 22 U/L (15-37) 24 U/L (15-37) Alanine Aminotransferase (ALT/SGPT) 28 U/L (12-78) 30 U/L (12-78) Alkaline Phosphatase 125 U/L (46-116) H 128 U/L (46-116) H Troponin I 0.019 ng/mL (0.000-0.056) Total Protein 6.8 G/DL (6.4-8.2) 6.9 G/DL (6.4-8.2) Albumin 2.1 G/DL (3.4-5.0) L 2.1 G/DL (3.4-5.0) L Globulin 4.7 g/dL 4.8 g/dL Albumin/Globulin Ratio 0.4 (1.0-2.7) L 0.4 (1.0-2.7) L Prothrombin Time 10.3 SEC (9.30-11.50) Prothromb Time International Ratio 1.0 (0.9-1.1) Activated Partial Thromboplast Time 28 SEC (23-33) Hemoglobin A1c 7.3 % (4.3-6.0) H Current Medications Medications (Trade) Dose Ordered Sig/Vineet Route PRN Reason Start Time Stop Time Status Last Admin Dose Admin Acetaminophen (Tylenol) 650 mg Q4H PRN GT Mild Pain/Temp > 100.5 11/07/18 01:15 12/07/18 01:14 Acetaminophen/ Hydrocodone Bitart ([place] 5/325) 1 tab TID PRN GT Moderate Pain (Pain Scale 4-6) 11/07/18 01:15 11/14/18 01:14 Amlodipine Besylate (Norvasc) 10 mg DAILY GT 11/07/18 09:00 12/07/18 08:59 11/07/18 08:22 Ascorbic Acid (Vitamin C) 500 mg DAILY GT 11/07/18 09:00 12/07/18 08:59 11/07/18 08:19 Atorvastatin Calcium (Lipitor) 80 mg BEDTIME GT 11/07/18 21:00 12/07/18 20:59 Bisacodyl (Dulcolax) 10 mg DAILY PRN RECTAL Constipation 11/07/18 02:30 12/07/18 01:59 Calcitriol (Rocaltrol) 0.5 mcg DAILY GT 11/07/18 09:00 12/07/18 08:59 Calcium Carbonate (Tums) 500 mg DAILY GT 11/07/18 09:00 12/07/18 08:59 11/07/18 08:20 Dextrose (Dextrose 50%) 25 ml Q30M PRN IV Hypoglycemia 11/07/18 02:00 12/07/18 01:59 Dextrose (Dextrose 50%) 50 ml Q30M PRN IV Hypoglycemia 11/07/18 02:00 12/07/18 01:59 Docusate Sodium (Colace) 50 mg Q12HR GT 11/07/18 09:00 12/07/18 08:59 11/07/18 08:19 Heparin Sodium (Porcine) (Heparin 5000 units/ml) 5,000 units EVERY 12 HOURS SUBQ 11/07/18 21:00 12/07/18 20:59 Hydralazine HCl (Apresoline) 5 mg Q30M PRN IV SBP>160 OR___/DBP>90 OR___ 11/07/18 13:45 11/07/18 20:00 Hydromorphone HCl (Dilaudid) 0.5 mg Q15M PRN IVP Severe Pain (Pain Scale 7-10) 11/07/18 13:45 11/07/18 20:00 Insulin Aspart (NovoLOG) BEFORE MEALS AND HS SUBQ 11/07/18 06:30 12/07/18 06:29 11/07/18 06:44 Insulin Detemir (Levemir) 20 units QHS SUBQ 11/07/18 21:00 12/07/18 20:59 Lansoprazole (Prevacid) 30 mg DAILY GT 11/07/18 09:00 12/07/18 08:59 11/07/18 08:19 Magnesium Hydroxide (Mom) 30 ml DAILY PRN GT Constipation 11/07/18 02:00 12/07/18 01:59 Potassium Chloride (K-Dur) 40 meq Q4H ORAL 11/07/18 15:00 11/07/18 19:01 11/07/18 16:02 Sodium Phosphate (Fleet's Sodium Phosl Enema) 133 ml Q72H PRN RECTAL Constipation 11/07/18 03:00 12/07/18 02:59 Vitamin B Complex/ Vit C/Folic Acid (Nephrovite) 1 tab DAILY GT 11/07/18 09:00 12/07/18 08:59 11/07/18 08:20 Zinc Sulfate (Zinc Sulfate) 220 mg Q12HR GT 11/07/18 09:00 5/25/19 08:59 11/07/18 08:19 A/P: # Anemia of chronic disease (or of iron deficiency) due to underlying chronic medical issues, multifactorial --> Anemia workup has been ordered, rule out gi bleed --> No evidence of hemolysis is noted, peripheral smear has been reviewed. --> Hgb goal >7. Transfuse prn. --> Epogen or iron at this time is not particularly indicated --> Medications have been reviewed --> evaluate with Gi team prn --> transfuse if hgb is < 7 (will trend CBC daily) --> low threshold for gi evaluation in case has occult + # ESRD, h.o of , creation of AVF by Vascular Sx --> evaluation with vascular surgery --> also may need iron based on anemia results --> hd as per renal # Hypokalemia --> replete with K as needed per renal # Secondary hyperparathyroidism --> ca supplementation as needed and renal recs The timing of this note does not necessarily reflect the time of the patient was seen. Greatly appreciate consultation! Jayden Hernandez MD Nov 07, 2018 18:02
--- NOTE | 2018-11-07 19:15 | NUR ---
NURSE NOTES: Pt is sleeping in the bed w/o respiratory distress in 3L NC, easily arousable by voice stimuli. Sign for no BP, No Vanipucture on R. Arm, L. Arm No BP. L. Arm +4 edema noted. SR in the monitor. Bed is in the lowest position and breaks are engaged. Call light and side table are w/in reach. Will follow plans of care.
--- NOTE | 2018-11-07 19:34 | Consultation ---
History of Present Illness General Date patient seen: Nov 07, 2018 Chief Complaint: General Complaint Present Illness HPI 58 y/o female from [facility], admitted after av fistula creation. Pt. has esrd, on / / schedule, also has groin temporary dialysis catheter. She is currently post op, tolerating tube feeds, denies pain, no cp/sob/n/v/f/c. Allergies: Coded Allergies: No Known Allergies (Unverified , 11/06/18) Medication History Scheduled Amlodipine Besylate* (Amlodipine Besylate*), 10 MG ORAL DAILY, (Reported) Ascorbic Acid* (Ascorbic Acid*), 500 MG ORAL DAILY, (Reported) Atorvastatin Calcium* (Lipitor*), 80 MG ORAL BEDTIME, (Reported) Calcitriol (Calcitriol), 0.5 MCG GT DAILY, (Reported) Calcium Carbonate (Calcium Carbonate), 500 MG GT DAILY, (Reported) Citalopram Hydrobromide* (Citalopram Hbr*), 10 MG GT DAILY, (Reported) Docusate Sodium (Docu Liquid), 50 MG GT Q12HR, (Reported) Heparin Sod (Porcine) (Heparin Sodium*), 5,000 UNITS SUBQ EVERY 12 HOURS, ( Reported) Hydralazine Hcl* (Hydralazine Hcl*), 100 MG GT EVERY 8 HOURS, (Reported) Insulin Detemir (Levemir Flexpen), 20 UNITS SUBQ HS, (Reported) Lansoprazole* (Lansoprazole*), 30 MG ORAL DAILY, (Reported) Na Phos,M-B/Na Phos,Di-Ba* (Fleet Enema*), 133 ML RECTAL DAILY, (Reported) Zinc Sulfate (Zinc Sulfate*), 220 MG GT Q12HR, (Reported) Scheduled PRN Acetaminophen* (Acetaminophen 325MG Tablet*), 650 MG GT Q4H PRN for Mild Pain/ Temp > 100.5, (Reported) Bisacodyl (Dulcolax), 10 MG RC DAILY PRN for Constipation, (Reported) Magnesium Hydroxide* (Milk Of Magnesia*), 30 ML GT DAILY PRN for Constipation, ( Reported) Na Phos,M-B/Na Phos,Di-Ba* (Fleet Enema*), 133 ML RECTAL Q72H PRN for cons, ( Reported) Miscellaneous Medications Balsam [place] (Bh[place] Balsam), 113 GM MC, (Reported) Folic Acid/Vitamin B Comp W-C (Gayle-Mode Tablet), 0.8 MG PO, (Reported) Lactobacillus Acidophilus (Acidophilus), 1 EACH PO, (Reported) Protein Supplement (Promod), 946 ML PO, (Reported) Medications Narrative SEE list reviewed Patient History Healthcare decision maker Daniel Zamorano Resuscitation status Full Code Advanced Directive on File Yes Past Medical/Surgical History Past Medical/Surgical History: (1) Malfunction of arteriovenous dialysis fistula (2) Hypokalemia (3) Anemia (4) ESRD (end stage renal disease) on dialysis Social History Social History: (1) Non-tobacco user Review of Systems Constitutional: Reports: malaise, weakness Eye: Denies: no symptoms, see HPI, eye pain, blurred vision, tearing, double vision, nose pain, nose congestion, acuity changes, discharge, other ENT: Denies: no symptoms, see HPI, ear pain, ear discharge, nose pain, nose congestion, throat pain, throat swelling, mouth pain, hearing loss, nasal discharge, other Respiratory: Reports: cough, PATTEN Cardiovascular: Denies: no symptoms, see HPI, chest pain, edema, palpitations, syncope, PND, other Gastrointestinal: Denies: no symptoms, see HPI, abdominal pain, constipation, diarrhea, nausea, vomiting, melena, hematemesis, other Skin: Denies: no symptoms, see HPI, rash, change in color, change in hair/nails , dryness, lesions, other Psychiatric: Denies: no symptoms, see HPI, prior hx, anxiety, depressed feelings, emotional problems, SI, HI, hallucinations, other Neurological: Denies: no symptoms, see HPI, headache, numbness, paresthesia, seizure, tingling, tremors, focal weakness, syncope, dizziness, other Physical Exam General Appearance: no apparent distress, confused Lines, tubes and drains: central line, shunt, dialysis access HEENT: normocephalic, atraumatic, anicteric, mucous membranes moist, PERRL Neck: non-tender, supple Respiratory/Chest: decreased breath sounds Cardiovascular/Chest: normal rate Abdomen: soft Genitourinary/Rectal: normal genital exam Extremities: non-tender Skin Exam: warm/dry 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 Last 24 Hour Vital Signs Date Time Temp Pulse Resp B/P (MAP) Pulse Ox O2 Delivery O2 Flow Rate FiO2 11/07/18 17:10 97.9 83 16 126/55 (78) 96 11/07/18 16:00 80 11/07/18 15:15 98.2 73 15 123/55 100 Nasal Cannula 3 11/07/18 15:00 71 14 125/59 100 Nasal Cannula 3 11/07/18 14:55 75 15 121/50 100 Nasal Cannula 3 11/07/18 14:50 76 16 127/52 100 Nasal Cannula 3 11/07/18 14:40 73 14 129/48 100 Nasal Cannula 3 11/07/18 14:30 76 17 125/54 100 Nasal Cannula 3 11/07/18 14:26 78 12 99 11/07/18 14:20 75 15 123/52 100 Nasal Cannula 3 11/07/18 14:15 99.5 78 12 124/53 99 Nasal Cannula 3 11/07/18 12:39 98.5 84 18 140/86 (104) 96 11/07/18 12:29 Non-Rebreather 11/07/18 08:22 84 143/71 11/07/18 08:00 81 11/07/18 04:00 98.1 82 18 136/78 (97) 96 11/07/18 04:00 69 11/07/18 00:35 Nasal Cannula 3.0 11/07/18 00:00 99.0 80 20 142/84 (103) 96 11/07/18 00:00 84 11/06/18 23:30 98.4 11/06/18 23:30 98.4 82 18 136/46 100 Room Air 3.0 11/06/18 23:22 98.4 86 18 136/46 98 Room Air 11/06/18 21:10 86 16 Nasal Cannula 3.0 11/06/18 21:10 98.2 85 16 151/61 98 Nasal Cannula 3.0 11/06/18 21:07 98.2 86 16 151/61 98 Nasal Cannula 3.0 Intake and Output 11/06/18 11/07/18 18:59 06:59 Intake Total 100 ml Balance 100 ml Intake Oral 50 ml Free Water 50 ml Laboratory Tests Test 11/06/18 21:55 11/06/18 23:10 11/07/18 05:55 11/07/18 11:28 White Blood Count 10.6 K/UL (4.8-10.8) Red Blood Count 2.37 M/UL (4.20-5.40) L Hemoglobin 7.0 G/DL (12.0-16.0) L Hematocrit 21.4 % (37.0-47.0) L Mean Corpuscular Volume 90 FL (80-99) Mean Corpuscular Hemoglobin 29.5 PG (27.0-31.0) Mean Corpuscular Hemoglobin Concent 32.8 G/DL (32.0-36.0) Red Cell Distribution Width 14.5 % (11.6-14.8) Platelet Count 213 K/UL (150-450) Mean Platelet Volume 5.6 FL (6.5-10.1) L Neutrophils (%) (Auto) % (45.0-75.0) Lymphocytes (%) (Auto) % (20.0-45.0) Monocytes (%) (Auto) % (1.0-10.0) Eosinophils (%) (Auto) % (0.0-3.0) Basophils (%) (Auto) % (0.0-2.0) Differential Total Cells Counted 100 Neutrophils % (Manual) 82 % (45-75) H Lymphocytes % (Manual) 9 % (20-45) L Monocytes % (Manual) 7 % (1-10) Eosinophils % (Manual) 1 % (0-3) Basophils % (Manual) 1 % (0-2) Band Neutrophils 0 % (0-8) Platelet Estimate Adequate Platelet Morphology Normal Hypochromasia 1+ Anisocytosis 1+ Sodium Level 135 MMOL/L (136-145) L 136 MMOL/L (136-145) 135 MMOL/L (136-145) L Potassium Level 2.2 MMOL/L (3.5-5.1) *L 2.3 MMOL/L (3.5-5.1) *L 2.4 MMOL/L (3.5-5.1) *L 2.8 MMOL/L (3.5-5.1) L Chloride Level 98 MMOL/L (98-107) 99 MMOL/L (98-107) 99 MMOL/L (98-107) Carbon Dioxide Level 28 MMOL/L (21-32) 28 MMOL/L (21-32) 26 MMOL/L (21-32) Anion Gap 8 mmol/L (5-15) 10 mmol/L (5-15) 10 mmol/L (5-15) Blood Urea Nitrogen 10 mg/dL (7-18) 11 mg/dL (7-18) 14 mg/dL (7-18) Creatinine 0.8 MG/DL (0.55-1.30) 0.8 MG/DL (0.55-1.30) 1.1 MG/DL (0.55-1.30) Estimat Glomerular Filtration Rate > 60 mL/min (>60) > 60 mL/min (>60) 50.7 mL/min (>60) Glucose Level 145 MG/DL (74-106) H 167 MG/DL (74-106) H 141 MG/DL (74-106) H Calcium Level 8.3 MG/DL (8.5-10.1) L 8.4 MG/DL (8.5-10.1) L 7.9 MG/DL (8.5-10.1) L Total Bilirubin 0.3 MG/DL (0.2-1.0) 0.3 MG/DL (0.2-1.0) Aspartate Amino Transf (AST/SGOT) 22 U/L (15-37) 24 U/L (15-37) Alanine Aminotransferase (ALT/SGPT) 28 U/L (12-78) 30 U/L (12-78) Alkaline Phosphatase 125 U/L (46-116) H 128 U/L (46-116) H Troponin I 0.019 ng/mL (0.000-0.056) Total Protein 6.8 G/DL (6.4-8.2) 6.9 G/DL (6.4-8.2) Albumin 2.1 G/DL (3.4-5.0) L 2.1 G/DL (3.4-5.0) L Globulin 4.7 g/dL 4.8 g/dL Albumin/Globulin Ratio 0.4 (1.0-2.7) L 0.4 (1.0-2.7) L Prothrombin Time 10.3 SEC (9.30-11.50) Prothromb Time International Ratio 1.0 (0.9-1.1) Activated Partial Thromboplast Time 28 SEC (23-33) Hemoglobin A1c 7.3 % (4.3-6.0) H Height (Feet): 4 Height (Inches): 11.00 Weight (Pounds): 84 Medications Current Medications Medications (Trade) Dose Ordered Sig/Vineet Route PRN Reason Start Time Stop Time Status Last Admin Dose Admin Acetaminophen (Tylenol) 650 mg Q4H PRN GT Mild Pain/Temp > 100.5 11/07/18 01:15 12/07/18 01:14 Acetaminophen/ Hydrocodone Bitart ([place] 5/325) 1 tab TID PRN GT Moderate Pain (Pain Scale 4-6) 11/07/18 01:15 11/14/18 01:14 Amlodipine Besylate (Norvasc) 10 mg DAILY GT 11/07/18 09:00 12/07/18 08:59 11/07/18 08:22 Ascorbic Acid (Vitamin C) 500 mg DAILY GT 11/07/18 09:00 12/07/18 08:59 11/07/18 08:19 Atorvastatin Calcium (Lipitor) 80 mg BEDTIME GT 11/07/18 21:00 12/07/18 20:59 Bisacodyl (Dulcolax) 10 mg DAILY PRN RECTAL Constipation 11/07/18 02:30 12/07/18 01:59 Calcitriol (Rocatrol) 0.5 mcg DAILY GT 11/08/18 09:00 12/08/18 08:59 Calcium Carbonate (Tums) 500 mg DAILY GT 11/07/18 09:00 12/07/18 08:59 11/07/18 08:20 Dextrose (Dextrose 50%) 25 ml Q30M PRN IV Hypoglycemia 11/07/18 02:00 12/07/18 01:59 Dextrose (Dextrose 50%) 50 ml Q30M PRN IV Hypoglycemia 11/07/18 02:00 12/07/18 01:59 Docusate Sodium (Colace) 50 mg Q12HR GT 11/07/18 09:00 12/07/18 08:59 11/07/18 08:19 Heparin Sodium (Porcine) (Heparin 5000 units/ml) 5,000 units EVERY 12 HOURS SUBQ 11/07/18 21:00 12/07/18 20:59 Hydralazine HCl (Apresoline) 5 mg Q30M PRN IV SBP>160 OR___/DBP>90 OR___ 11/07/18 13:45 11/07/18 20:00 Hydromorphone HCl (Dilaudid) 0.5 mg Q15M PRN IVP Severe Pain (Pain Scale 7-10) 11/07/18 13:45 11/07/18 20:00 Insulin Aspart (NovoLOG) BEFORE MEALS AND HS SUBQ 11/07/18 06:30 12/07/18 06:29 11/07/18 06:44 Insulin Detemir (Levemir) 20 units QHS SUBQ 11/07/18 21:00 12/07/18 20:59 Lansoprazole (Prevacid) 30 mg DAILY GT 11/07/18 09:00 12/07/18 08:59 11/07/18 08:19 Magnesium Hydroxide (Mom) 30 ml DAILY PRN GT Constipation 11/07/18 02:00 12/07/18 01:59 Sodium Phosphate (Fleet's Sodium Phosl Enema) 133 ml Q72H PRN RECTAL Constipation 11/07/18 03:00 12/07/18 02:59 Vitamin B Complex/ Vit C/Folic Acid (Nephrovite) 1 tab DAILY GT 11/07/18 09:00 12/07/18 08:59 11/07/18 08:20 Zinc Sulfate (Zinc Sulfate) 220 mg Q12HR GT 11/07/18 09:00 12/07/18 08:59 11/07/18 08:19 Assessment/Plan Problem List: (1) Hypokalemia Assessment & Plan: -repleted po ICD Codes: E87.6 - Hypokalemia; Z99.2 - Dependence on renal dialysis SNOMED: 54529008 (2) Anemia Assessment & Plan: - epogen as needed with hd ICD Codes: D64.9 - Anemia, unspecified SNOMED: 422269690 (3) ESRD (end stage renal disease) on dialysis Assessment & Plan: -plan hd in am -watch volume status -adjust meds to lower crcl ICD Codes: N18.6 - End stage renal disease; Z99.2 - Dependence on renal dialysis SNOMED: 828007326 (4) Malfunction of arteriovenous dialysis fistula Assessment & Plan: -s/p surgery, watch access ICD Codes: T82.590A - Other mechanical complication of surgically created arteriovenous fistula, initial encounter SNOMED: 606425491 Status: stable Raphael Conte M.D. Nov 07, 2018 19:34
--- NOTE | 2018-11-07 19:46 | NUR ---
HAND-OFF: Report given to Elza MITCHELL. Addendum: 11/07/18 at 1947 by CELSA LISA RN RN Report given to Shruthi TALLEY RN.
--- NOTE | 2018-11-07 20:31 | Consultation ---
History of Present Illness General Date patient seen: Nov 07, 2018 Reason for Hospitalization: General Complaint Present Illness HPI 58 year old female with multiple medical comorbidities presented with non functioning dialysis access / fistula. Was taken to OR by vascular surgery for treatment. Had temp HD cath placed for HD in meantime. on admission noted to have large sacral decubitus ulcer and prior wounds requiring care and management. surgery called to evaluate and assist with care. patient seen, chart reviewed, patient examined. Allergies: Coded Allergies: No Known Allergies (Unverified , 11/06/18) Medication History Scheduled Amlodipine Besylate* (Amlodipine Besylate*), 10 MG ORAL DAILY, (Reported) Ascorbic Acid* (Ascorbic Acid*), 500 MG ORAL DAILY, (Reported) Atorvastatin Calcium* (Lipitor*), 80 MG ORAL BEDTIME, (Reported) Calcitriol (Calcitriol), 0.5 MCG GT DAILY, (Reported) Calcium Carbonate (Calcium Carbonate), 500 MG GT DAILY, (Reported) Citalopram Hydrobromide* (Citalopram Hbr*), 10 MG GT DAILY, (Reported) Docusate Sodium (Docu Liquid), 50 MG GT Q12HR, (Reported) Heparin Sod (Porcine) (Heparin Sodium*), 5,000 UNITS SUBQ EVERY 12 HOURS, ( Reported) Hydralazine Hcl* (Hydralazine Hcl*), 100 MG GT EVERY 8 HOURS, (Reported) Insulin Detemir (Levemir Flexpen), 20 UNITS SUBQ HS, (Reported) Lansoprazole* (Lansoprazole*), 30 MG ORAL DAILY, (Reported) Na Phos,M-B/Na Phos,Di-Ba* (Fleet Enema*), 133 ML RECTAL DAILY, (Reported) Zinc Sulfate (Zinc Sulfate*), 220 MG GT Q12HR, (Reported) Scheduled PRN Acetaminophen* (Acetaminophen 325MG Tablet*), 650 MG GT Q4H PRN for Mild Pain/ Temp > 100.5, (Reported) Bisacodyl (Dulcolax), 10 MG RC DAILY PRN for Constipation, (Reported) Magnesium Hydroxide* (Milk Of Magnesia*), 30 ML GT DAILY PRN for Constipation, ( Reported) Na Phos,M-B/Na Phos,Di-Ba* (Fleet Enema*), 133 ML RECTAL Q72H PRN for cons, ( Reported) Miscellaneous Medications Balsam [place] ([facility] Balsa), 113 GM MC, (Reported) Folic Acid/Vitamin B Comp W-C (Gayle-Mode Tablet), 0.8 MG PO, (Reported) Lactobacillus Acidophilus (Acidophilus), 1 EACH PO, (Reported) Protein Supplement (Promod), 946 ML PO, (Reported) Patient History Healthcare decision maker Daniel Zamorano Resuscitation status Full Code Advanced Directive on File Yes Review of Systems Review of Symptoms General ROS: no weight loss or fever Psychological ROS: no depression or mood changes, no memory loss Ophthalmic ROS: no visual changes or eye irritation ENT ROS: no nasal congestion, hearing loss, dizziness Allergy and Immunology ROS: no allergic symptoms or urticaria Hematological and Lymphatic ROS: no swollen glands, unusual bleeding or bruising Endocrine ROS: no polyuria, polydipsia, weight changes, temperature intolerance Respiratory ROS: no cough, shortness of breath, or wheezing Cardiovascular ROS: no chest pain or dyspnea on exertion Gastrointestinal ROS: denies abdominal pain, no bright red blood in stool. Musculoskeletal ROS: no myalgias or arthralgias Neurological ROS: no TIA or stroke symptoms Dermatological ROS: no new or changing skin lesions, rashes or pruritis Physical Exam Physical Exam General appearance: alert, cooperative, no distress, appears stated age Head: Normocephalic, without obvious abnormality, atraumatic Eyes: conjunctivae/corneas clear. PERRL, EOM's intact. Fundi benign Throat: Lips, mucosa, and tongue normal. Teeth and gums normal Neck: supple, symmetrical, trachea midline, no adenopathy, thyroid: not enlarged, symmetric, no tenderness/mass/nodules, no carotid bruit and no JVD Lungs: clear to auscultation bilaterally Heart: regular rate and rhythm, S1, S2 normal, no murmur, click, rub or gallop Abdomen: soft, non-tender. Bowel sounds normal. No masses, no organomegaly Extremities: extremities normal, atraumatic, no cyanosis or edema Pulses: 2+ and symmetric Skin: Skin color, texture, turgor normal. No rashes or lesions Neurologic: Grossly normal Last 24 Hour Vital Signs Date Time Temp Pulse Resp B/P (MAP) Pulse Ox O2 Delivery O2 Flow Rate FiO2 11/07/18 17:10 97.9 83 16 126/55 (78) 96 11/07/18 16:00 80 11/07/18 15:15 98.2 73 15 123/55 100 Nasal Cannula 3 11/07/18 15:00 71 14 125/59 100 Nasal Cannula 3 11/07/18 14:55 75 15 121/50 100 Nasal Cannula 3 11/07/18 14:50 76 16 127/52 100 Nasal Cannula 3 11/07/18 14:40 73 14 129/48 100 Nasal Cannula 3 11/07/18 14:30 76 17 125/54 100 Nasal Cannula 3 11/07/18 14:26 78 12 99 11/07/18 14:20 75 15 123/52 100 Nasal Cannula 3 11/07/18 14:15 99.5 78 12 124/53 99 Nasal Cannula 3 11/07/18 12:39 98.5 84 18 140/86 (104) 96 11/07/18 12:29 Non-Rebreather 11/07/18 08:22 84 143/71 11/07/18 08:00 81 11/07/18 04:00 98.1 82 18 136/78 (97) 96 11/07/18 04:00 69 11/07/18 00:35 Nasal Cannula 3.0 11/07/18 00:00 99.0 80 20 142/84 (103) 96 11/07/18 00:00 84 11/06/18 23:30 98.4 11/06/18 23:30 98.4 82 18 136/46 100 Room Air 3.0 11/06/18 23:22 98.4 86 18 136/46 98 Room Air 11/06/18 21:10 86 16 Nasal Cannula 3.0 11/06/18 21:10 98.2 85 16 151/61 98 Nasal Cannula 3.0 11/06/18 21:07 98.2 86 16 151/61 98 Nasal Cannula 3.0 Intake and Output 11/06/18 11/07/18 18:59 06:59 Intake Total 100 ml Balance 100 ml Intake Oral 50 ml Free Water 50 ml Laboratory Tests Test 11/06/18 21:55 11/06/18 23:10 11/07/18 05:55 11/07/18 11:28 White Blood Count 10.6 K/UL (4.8-10.8) Red Blood Count 2.37 M/UL (4.20-5.40) L Hemoglobin 7.0 G/DL (12.0-16.0) L Hematocrit 21.4 % (37.0-47.0) L Mean Corpuscular Volume 90 FL (80-99) Mean Corpuscular Hemoglobin 29.5 PG (27.0-31.0) Mean Corpuscular Hemoglobin Concent 32.8 G/DL (32.0-36.0) Red Cell Distribution Width 14.5 % (11.6-14.8) Platelet Count 213 K/UL (150-450) Mean Platelet Volume 5.6 FL (6.5-10.1) L Neutrophils (%) (Auto) % (45.0-75.0) Lymphocytes (%) (Auto) % (20.0-45.0) Monocytes (%) (Auto) % (1.0-10.0) Eosinophils (%) (Auto) % (0.0-3.0) Basophils (%) (Auto) % (0.0-2.0) Differential Total Cells Counted 100 Neutrophils % (Manual) 82 % (45-75) H Lymphocytes % (Manual) 9 % (20-45) L Monocytes % (Manual) 7 % (1-10) Eosinophils % (Manual) 1 % (0-3) Basophils % (Manual) 1 % (0-2) Band Neutrophils 0 % (0-8) Platelet Estimate Adequate Platelet Morphology Normal Hypochromasia 1+ Anisocytosis 1+ Sodium Level 135 MMOL/L (136-145) L 136 MMOL/L (136-145) 135 MMOL/L (136-145) L Potassium Level 2.2 MMOL/L (3.5-5.1) *L 2.3 MMOL/L (3.5-5.1) *L 2.4 MMOL/L (3.5-5.1) *L 2.8 MMOL/L (3.5-5.1) L Chloride Level 98 MMOL/L (98-107) 99 MMOL/L (98-107) 99 MMOL/L (98-107) Carbon Dioxide Level 28 MMOL/L (21-32) 28 MMOL/L (21-32) 26 MMOL/L (21-32) Anion Gap 8 mmol/L (5-15) 10 mmol/L (5-15) 10 mmol/L (5-15) Blood Urea Nitrogen 10 mg/dL (7-18) 11 mg/dL (7-18) 14 mg/dL (7-18) Creatinine 0.8 MG/DL (0.55-1.30) 0.8 MG/DL (0.55-1.30) 1.1 MG/DL (0.55-1.30) Estimat Glomerular Filtration Rate > 60 mL/min (>60) > 60 mL/min (>60) 50.7 mL/min (>60) Glucose Level 145 MG/DL (74-106) H 167 MG/DL (74-106) H 141 MG/DL (74-106) H Calcium Level 8.3 MG/DL (8.5-10.1) L 8.4 MG/DL (8.5-10.1) L 7.9 MG/DL (8.5-10.1) L Total Bilirubin 0.3 MG/DL (0.2-1.0) 0.3 MG/DL (0.2-1.0) Aspartate Amino Transf (AST/SGOT) 22 U/L (15-37) 24 U/L (15-37) Alanine Aminotransferase (ALT/SGPT) 28 U/L (12-78) 30 U/L (12-78) Alkaline Phosphatase 125 U/L (46-116) H 128 U/L (46-116) H Troponin I 0.019 ng/mL (0.000-0.056) Total Protein 6.8 G/DL (6.4-8.2) 6.9 G/DL (6.4-8.2) Albumin 2.1 G/DL (3.4-5.0) L 2.1 G/DL (3.4-5.0) L Globulin 4.7 g/dL 4.8 g/dL Albumin/Globulin Ratio 0.4 (1.0-2.7) L 0.4 (1.0-2.7) L Prothrombin Time 10.3 SEC (9.30-11.50) Prothromb Time International Ratio 1.0 (0.9-1.1) Activated Partial Thromboplast Time 28 SEC (23-33) Hemoglobin A1c 7.3 % (4.3-6.0) H Height (Feet): 4 Height (Inches): 11.00 Weight (Pounds): 84 Medications Current Medications Medications (Trade) Dose Ordered Sig/Vineet Route PRN Reason Start Time Stop Time Status Last Admin Dose Admin Acetaminophen (Tylenol) 650 mg Q4H PRN GT Mild Pain/Temp > 100.5 11/07/18 01:15 12/07/18 01:14 Acetaminophen/ Hydrocodone Bitart ([place] 5/325) 1 tab TID PRN GT Moderate Pain (Pain Scale 4-6) 11/07/18 01:15 11/14/18 01:14 Amlodipine Besylate (Norvasc) 10 mg DAILY GT 11/07/18 09:00 12/07/18 08:59 11/07/18 08:22 Ascorbic Acid (Vitamin C) 500 mg DAILY GT 11/07/18 09:00 12/07/18 08:59 11/07/18 08:19 Atorvastatin Calcium (Lipitor) 80 mg BEDTIME GT 11/07/18 21:00 12/07/18 20:59 Bisacodyl (Dulcolax) 10 mg DAILY PRN RECTAL Constipation 11/07/18 02:30 12/07/18 01:59 Calcitriol (Rocatrol) 0.5 mcg DAILY GT 11/08/18 09:00 12/08/18 08:59 Calcium Carbonate (Tums) 500 mg DAILY GT 11/07/18 09:00 12/07/18 08:59 11/07/18 08:20 Dextrose (Dextrose 50%) 25 ml Q30M PRN IV Hypoglycemia 11/07/18 02:00 12/07/18 01:59 Dextrose (Dextrose 50%) 50 ml Q30M PRN IV Hypoglycemia 11/07/18 02:00 12/07/18 01:59 Docusate Sodium (Colace) 50 mg Q12HR GT 11/07/18 09:00 12/07/18 08:59 11/07/18 08:19 Epoetin Moy (Epoetin Moy(ESRD on dialysis)) 10,000 unit SUN-WED-SUN SUBQ 11/08/18 21:00 12/08/18 20:59 Insulin Aspart (NovoLOG) BEFORE MEALS AND HS SUBQ 11/07/18 06:30 12/07/18 06:29 11/07/18 06:44 Insulin Detemir (Levemir) 20 units QHS SUBQ 11/07/18 21:00 12/07/18 20:59 Lansoprazole (Prevacid) 30 mg DAILY GT 11/07/18 09:00 12/07/18 08:59 11/07/18 08:19 Magnesium Hydroxide (Mom) 30 ml DAILY PRN GT Constipation 11/07/18 02:00 12/07/18 01:59 Sodium Phosphate (Fleet's Sodium Phosl Enema) 133 ml Q72H PRN RECTAL Constipation 11/07/18 03:00 12/07/18 02:59 Vitamin B Complex/ Vit C/Folic Acid (Nephrovite) 1 tab DAILY GT 11/07/18 09:00 12/07/18 08:59 11/07/18 08:20 Zinc Sulfate (Zinc Sulfate) 220 mg Q12HR GT 11/07/18 09:00 12/07/18 08:59 11/07/18 08:19 Assessment/Plan Problem List: (1) Sacral decubitus ulcer Assessment & Plan: Patient presented with full thickness sacral decubitus ulcer. some granulation tissue with 30% sloth noted. no drainage. no foul odor. does seem to have prior intervention performed in the past. wound stable. no signs of active infection. will need continued care to allow for healing. also has prior ortho hip surgical wounds have have well healed. Tx Plan: wash sacral wound daily with NS, apply therahoney followed by foam dressing turn q2h air mattress heel protectors off load heels with pillows thank you ICD Codes: L89.159 - Pressure ulcer of sacral region, unspecified stage SNOMED: 317587098 (2) Hypokalemia ICD Codes: E87.6 - Hypokalemia; Z99.2 - Dependence on renal dialysis SNOMED: 27872573 (3) Anemia ICD Codes: D64.9 - Anemia, unspecified SNOMED: 288377854 (4) ESRD (end stage renal disease) on dialysis ICD Codes: N18.6 - End stage renal disease; Z99.2 - Dependence on renal dialysis SNOMED: 719709231 (5) Malfunction of arteriovenous dialysis fistula ICD Codes: T82.590A - Other mechanical complication of surgically created arteriovenous fistula, initial encounter SNOMED: 968692383 Julio Martin Nov 07, 2018 20:31
[2018-11-07] MEDS ORDERED: Levemir Flexpen SUBQ SCH (21:00)
[2018-11-07] MEDS ORDERED: Heparin 5000 units/ml inj SUBQ SCH (21:00)
--- NOTE | 2018-11-07 21:17 | NUR ---
NURSE NOTES: Called Dr. Collier and reported that pt has R. Arm AV shunt, L arm +4 edema, and RLE IV site which is done in OR. He ordered Lab drawn, IV site on [place] extremities. Order was placed as other nursing order. Addendum: 11/07/18 at 2155 by MARIA G TALLEY RN Other nursing order of "Ok to use lower extremities for lab drawn and IV site. Called back to Dr. Collier and notified that pt has DM, taking insulin, and the risk of DVT, PVD. Also, reported the negative result of Venous Duplex result. confirmed to continue the other nursing order.
[2018-11-07] MEDS: Atorvastatin 80mg tab GT SCH (21:30)
[2018-11-08] VITALS: BP 121/53
--- NOTE | 2018-11-08 00:29 | NUR ---
NURSE NOTES: Pt is sleeping in 3L NC, no distress. GT feeding is running at 20ml/h, no residual. SR 74 bpm in the monitor. Will continue to monitor.
[2018-11-08 04:00] VITALS: BP 123/51
[2018-11-08 04:11] LABS: BASOPHILS % (AUTO) 1.3 % (0.0-2.0); EOSINOPHILS % (AUTO) 0.9 % (0.0-3.0); HEMATOCRIT 26.6 % (37.0-47.0); HEMOGLOBIN 8.8 G/DL (12.0-16.0); LYMPHOCYTES % (AUTO) 6.4 % (20.0-45.0); MEAN CORPUSCULAR VOLUME 91 FL (80-99); MONOCYTES % (AUTO) 10.9 % (1.0-10.0); NEUTROPHILS % (AUTO) 80.6 % (45.0-75.0); PLATELET COUNT 227 K/UL (150-450); RED BLOOD COUNT 2.94 M/UL (4.20-5.40); WHITE BLOOD COUNT 9.9 K/UL (4.8-10.8)
[2018-11-08 04:21] LABS: ALANINE AMINOTRANSFERASE 19 U/L (12-78); ALBUMIN 1.9 G/DL (3.4-5.0); ALBUMIN/GLOBULIN RATIO 0.4 (1.0-2.7); ALKALINE PHOSPHATASE 116 U/L (46-116); ANION GAP 7 mmol/L (5-15); ASPARTATE AMINO TRANSFERASE 18 U/L (15-37); BILIRUBIN,TOTAL 0.2 MG/DL (0.2-1.0); BLOOD UREA NITROGEN 27 mg/dL (7-18); CALCIUM 7.9 MG/DL (8.5-10.1); CARBON DIOXIDE 28 MMOL/L (21-32); CHLORIDE 101 MMOL/L (98-107); CREATININE 1.9 MG/DL (0.55-1.30); POTASSIUM 3.2 MMOL/L (3.5-5.1); SODIUM 136 MMOL/L (136-145)
[2018-11-08] MEDS: Acetaminophen 650mg/20.3ml GT PRN (06:30)
[2018-11-08] MEDS: NovoLOG Insulin Flexpen SUBQ SCH ×2 (06:30→11:30)
--- NOTE | 2018-11-08 06:31 | NUR ---
NURSE NOTES: Tylenol was given d/t pain. Pt was cleaned, dried, and repositioned. HOB kept 30 degree. No residual from GT feeding. Sacral dressing was changed. Pillow was placed under L. arm d/t edema.
--- NOTE | 2018-11-08 06:50 | NUR ---
NURSE NOTES: BS is 41 in the morning. Dextros 50ml was given. Will reaccess BS in 15 min. GT feeding was running from 100cc to 55cc/h through out the night. CN made aware. Addendum: 11/08/18 at 0801 by MARIA G TALLEY RN BS 150 [address] after [address]. Collier was called and left message regarding it.
--- NOTE | 2018-11-08 07:29 | NUR ---
HAND-OFF: Report given to Ninfa Bradley RN.
--- NOTE | 2018-11-08 07:50 | NUR ---
NURSE NOTES: Received shift report from PAULA Tejeda. The patient is resting on the bed without acute distress or shortness of breath. Hemodialysis will be done today and confirmed by Jayden. Notified about hypoglycemia event on 0600 and covered with dextrose. After dextrose administration, was told that blood sugar went upto 150. Will closely monitor blood sugar. Will closely monitor skin condition. The patient's bed is in the lowest position, call light in reach, and fall precaution reinforced. IV is intact. Will continue plan of care.
[2018-11-08 08:00] VITALS: BP 127/49
--- NOTE | 2018-11-08 08:11 | 48 Hour Post Anesthesia Eval ---
Post Anesthesia Evaluation Procedure: RIGHT arm A-V shunt placement Date of Evaluation: Nov 08, 2018 Time of Evaluation: 08:09 Blood Pressure Systolic: 132 0: 76 Pulse Rate: 68 Respiratory Rate: 20 Temperature (Fahrenheit): 97.6 O2 Sat by Pulse Oximetry: 98 Airway: patent Nausea: No Vomiting: No Pain Intensity: 2 Hydration Status: adequate Cardiopulmonary Status: stable Mental Status/LOC: patient returned to baseline Follow-up Care/Observations: n/a Post-Anesthesia Complications: none Follow-up care needed: N/A Robson Keating MD Nov 08, 2018 08:11
[2018-11-08] MEDS: Docusate 100mg/10ml Liq GT SCH ×2 (08:39→21:15)
[2018-11-08] MEDS: Zinc Sulfate 220mg cap GT SCH ×2 (08:39→21:15)
[2018-11-08] MEDS: Tums 500mg GT SCH (08:39)
[2018-11-08] MEDS: Nephrovite tab (Rena-Vite) GT SCH (08:39)
[2018-11-08] MEDS: Calcitriol 0.25mcg Cap GT SCH (08:40)
[2018-11-08] MEDS: Ascorbic Acid 500mg tab GT SCH (08:41)
--- NOTE | 2018-11-08 09:20 | NUR ---
NURSE NOTES: Wound care nurse came in for assessment and dressing change. Treatment provided by the wound care nurse for Stage III sacral wound and right Ischium DTI. Optifoam applied by the wound care nurse on bilateral heel. Will continue to monitor.
--- NOTE | 2018-11-08 09:30 | NUR ---
NURSE NOTES: Per Dr. Huang/ Insole Cementer, decrease Levemir into half dose after notified the hypoglycemia event this morning. Will carry out the order. Addendum: 11/08/18 at 1701 by Trevin Barbosa RN Per Dr. Collier, decrease Levemir into half dose after notified the hypoglycemia event this morning. Will carry out the order.
[2018-11-08 12:00] VITALS: BP 143/58
--- NOTE | 2018-11-08 12:35 | General Progress Note ---
Assessment/Plan Status: stable Assessment/Plan: S: Not verbally communicative O: Disoriented. appears comfortable . poor historian General Appearance: alert, Chronically Ill ENT: moist mucus membranes Neck: limited range of motion Respiratory: normal inspection, lungs clear Cardiovascular #1: normal inspection, regular rate, rhythm Gastrointestinal: normal inspection Musculoskeletal: swelling - left upper extremity edema, Neurologic: alert, motor weakness Psychiatric: normal inspection Skin: other - decubitus ulcer Lab: Dated November 06 reviewed Meds: Reviewed and reconciled in the chart A/P: 1- ESRD, h.o of , creation of AVF by Vascular Sx 2- Hypokalemia 3- Anemia-Acute 4- DM-2 5- Chronic Encephalomalacia Plan: Will decrease lantus Will consult Endo,Dr Dukes Will proceed with Potassium supplement and HD Subjective Allergies: Coded Allergies: No Known Allergies (Unverified , 11/06/18) Objective Last 24 Hour Vital Signs Date Time Temp Pulse Resp B/P (MAP) Pulse Ox O2 Delivery O2 Flow Rate FiO2 11/08/18 09:00 Nasal Cannula 3.0 11/08/18 08:31 68 115/73 11/08/18 08:11 68 20 98 11/08/18 08:00 67 11/08/18 08:00 98.0 67 17 127/49 (75) 100 11/08/18 04:00 74 11/08/18 04:00 98.4 78 20 123/51 (75) 100 11/08/18 00:03 74 11/08/18 00:00 99.0 76 20 121/53 (75) 97 11/07/18 21:00 Nasal Cannula 3.0 11/07/18 20:00 99.0 80 18 122/53 (76) 98 11/07/18 19:03 79 11/07/18 17:10 97.9 83 16 126/55 (78) 96 11/07/18 16:00 80 11/07/18 15:15 98.2 73 15 123/55 100 Nasal Cannula 3 11/07/18 15:00 71 14 125/59 100 Nasal Cannula 3 11/07/18 14:55 75 15 121/50 100 Nasal Cannula 3 11/07/18 14:50 76 16 127/52 100 Nasal Cannula 3 11/07/18 14:40 73 14 129/48 100 Nasal Cannula 3 11/07/18 14:30 76 17 125/54 100 Nasal Cannula 3 11/07/18 14:26 78 12 99 11/07/18 14:20 75 15 123/52 100 Nasal Cannula 3 11/07/18 14:15 99.5 78 12 124/53 99 Nasal Cannula 3 11/07/18 12:39 98.5 84 18 140/86 (104) 96 Intake and Output 11/07/18 11/08/18 19:00 07:00 Intake Total 10 ml 330 ml Output Total 150 ml Balance 10 ml 180 ml IV Total 0 ml Tube Feeding 10 ml 330 ml Output Stool Total 150 ml # Voids 1 Laboratory Tests 11/08/18 04:00: White Blood Count 9.9, Red Blood Count 2.94L, Hemoglobin 8.8L, Hematocrit 26.6L , Mean Corpuscular Volume 91, Mean Corpuscular Hemoglobin 29.8, Mean Corpuscular Hemoglobin Concent 33.0, Red Cell Distribution Width 14.0, Platelet Count 227, Mean Platelet Volume 6.3L, Neutrophils (%) (Auto) 80.6H, Lymphocytes (%) (Auto) 6.4L, Monocytes (%) (Auto) 10.9H, Eosinophils (%) (Auto) 0.9, Basophils (%) (Auto) 1.3, Sodium Level 136, Potassium Level 3.2L, Chloride Level 101, Carbon Dioxide Level 28, Anion Gap 7, Blood Urea Nitrogen 27H, Creatinine 1.9#H, Estimat Glomerular Filtration Rate 26.9, Glucose Level 48L, Calcium Level 7.9L, Total Bilirubin 0.2, Aspartate Amino Transf (AST/SGOT) 18, Alanine Aminotransferase (ALT/SGPT) 19, Alkaline Phosphatase 116, Total Protein 6.3L, Albumin 1.9L, Globulin 4.4, Albumin/Globulin Ratio 0.4L Height (Feet): 4 Height (Inches): 11.00 Weight (Pounds): 86 Umer Collier MD Nov 08, 2018 12:35
--- NOTE | 2018-11-08 14:00 | NUR ---
NURSE NOTES: The patient's colostomy bag changed and hygiene care completed. The dialysis nurse started hemodialysis as planned. Will continue to monitor the patient.
--- NOTE | 2018-11-08 14:21 | NUR ---
NURSE NOTES:WOUND CARE NOTES:Pt presented on admission with Full thickness sacral pressure injury. Base of wound granular with scattered patches of yellow slough ,approx 50%. Edges are macerated. Non-blanchable erythema with induration periwound .Pt also noted to have old keloid scar inferior to base of wound on L buttocks.(L)6cm x (W)7.5cm x (D)0.2cm. DTPI noted to R ischium.Dark brown discoloration that is fluctuant.Borders are red tinged. Periwound without erythema or fluctuance.(L)2cm x (W)2cm. Non-blanchable erythema with fluctuance noted to R heel. Pt verbalized tenderness when heel minimally palpated. L heel is blanchable but boggy.Non-tender when palpated. Tx.Plan:Cleanse Sacral wound with Saline.Apply Therahoney.Apply Triad Paste periwound . Cover with Optifoam drsg.Change every 3 days and prn. Apply Triad Paste to Groin areas,medial aspects of thighs ,and both ischial areas with each perineal care. Apply Cavilon Skin Barrier to both heels. Cover each heel with Optifoam drsg .Change every 7 days and prn. APM/PROSPER Mattress overlay. Reposition at least every 2hours or as tolerated. Off-load heels with pillow.
--- NOTE | 2018-11-08 14:45 | General Progress Note ---
Assessment/Plan Status: stable Assessment/Plan: A/P: # Anemia of chronic disease (or of iron deficiency) due to underlying chronic medical issues, multifactorial --> Anemia workup has been ordered, rule out gi bleed --> No evidence of hemolysis is noted, peripheral smear has been reviewed. --> Hgb goal >7. Transfuse prn. --> Epogen or iron at this time is not particularly indicated --> Medications have been reviewed --> evaluate with Gi team prn --> transfuse if hgb is < 7 (will trend CBC daily) --> low threshold for gi evaluation in case has occult + # ESRD, h.o of , creation of AVF by Vascular Sx --> evaluation with vascular surgery --> also may need iron based on anemia results --> hd as per renal # Hypokalemia --> replete with K as needed per renal # Secondary hyperparathyroidism --> ca supplementation as needed and renal recs # Decubitus ulcerations --> as per surgery eval The timing of this note does not necessarily reflect the time of the patient was seen. Greatly appreciate consultation! Subjective Hematologic/Lymphatic: Denies: no symptoms, anemia, easy bleeding, easy bruising, other Allergies: Coded Allergies: No Known Allergies (Unverified , 11/06/18) Subjective 11/08: nonverbal, improved h/h, pending hd Objective Last 24 Hour Vital Signs Date Time Temp Pulse Resp B/P (MAP) Pulse Ox O2 Delivery O2 Flow Rate FiO2 11/08/18 12:00 97.9 76 19 143/58 (86) 100 11/08/18 09:00 Nasal Cannula 3.0 11/08/18 08:31 68 115/73 11/08/18 08:11 68 20 98 11/08/18 08:00 67 11/08/18 08:00 98.0 67 17 127/49 (75) 100 11/08/18 04:00 74 11/08/18 04:00 98.4 78 20 123/51 (75) 100 11/08/18 00:03 74 11/08/18 00:00 99.0 76 20 121/53 (75) 97 11/07/18 21:00 Nasal Cannula 3.0 11/07/18 20:00 99.0 80 18 122/53 (76) 98 11/07/18 19:03 79 11/07/18 17:10 97.9 83 16 126/55 (78) 96 11/07/18 16:00 80 11/07/18 15:15 98.2 73 15 123/55 100 Nasal Cannula 3 11/07/18 15:00 71 14 125/59 100 Nasal Cannula 3 11/07/18 14:55 75 15 121/50 100 Nasal Cannula 3 11/07/18 14:50 76 16 127/52 100 Nasal Cannula 3 Intake and Output 11/07/18 11/08/18 19:00 07:00 Intake Total 10 ml 330 ml Output Total 150 ml Balance 10 ml 180 ml IV Total 0 ml Tube Feeding 10 ml 330 ml Output Stool Total 150 ml # Voids 1 Laboratory Tests 11/08/18 04:00: White Blood Count 9.9, Red Blood Count 2.94L, Hemoglobin 8.8L, Hematocrit 26.6L , Mean Corpuscular Volume 91, Mean Corpuscular Hemoglobin 29.8, Mean Corpuscular Hemoglobin Concent 33.0, Red Cell Distribution Width 14.0, Platelet Count 227, Mean Platelet Volume 6.3L, Neutrophils (%) (Auto) 80.6H, Lymphocytes (%) (Auto) 6.4L, Monocytes (%) (Auto) 10.9H, Eosinophils (%) (Auto) 0.9, Basophils (%) (Auto) 1.3, Sodium Level 136, Potassium Level 3.2L, Chloride Level 101, Carbon Dioxide Level 28, Anion Gap 7, Blood Urea Nitrogen 27H, Creatinine 1.9#H, Estimat Glomerular Filtration Rate 26.9, Glucose Level 48L, Calcium Level 7.9L, Total Bilirubin 0.2, Aspartate Amino Transf (AST/SGOT) 18, Alanine Aminotransferase (ALT/SGPT) 19, Alkaline Phosphatase 116, Total Protein 6.3L, Albumin 1.9L, Globulin 4.4, Albumin/Globulin Ratio 0.4L Height (Feet): 4 Height (Inches): 11.00 Weight (Pounds): 86 Objective General Appearance: alert, Chronically Ill, nonverbal ENT: moist mucus membranes Neck: limited range of motion Respiratory: normal inspection, lungs clear Cardiovascular: normal inspection, regular rate, rhythm Gastrointestinal: normal inspection Musculoskeletal: swelling - left upper extremity edema Neurologic: alert, motor weakness Psychiatric: normal inspection Skin: other - decubitus ulcer, +++ Avf with Jayden Perez MD Nov 08, 2018 14:45
--- NOTE | 2018-11-08 15:19 | NUR ---
NURSE NOTES: Per Jayden/ Dialysis nurse, 1L came out from hemodialysis. Her blood pressure is stable, and the reading was 137/64. Will continue plan of care.
[2018-11-08 16:00] VITALS: BP 139/63
--- NOTE | 2018-11-08 16:02 | Nephrology Progress Note ---
Assessment/Plan Problem List: (1) Hypokalemia Assessment: -repleted po again today and used high K bath with HD (2) Anemia Assessment: -epogen given -no overt bleeding noted -check iron panel -added protonix (3) ESRD (end stage renal disease) on dialysis Assessment: -s/p hd, goo dblood flow -watch volume status, access care -adjust meds to lower crcl (4) Malfunction of arteriovenous dialysis fistula Assessment: -s/p surgery, watch access Subjective Subjective pt. seen and examined confused s/p hd, d/w rn Objective Objective Last 24 Hour Vital Signs Date Time Temp Pulse Resp B/P (MAP) Pulse Ox O2 Delivery O2 Flow Rate FiO2 11/08/18 12:00 97.9 76 19 143/58 (86) 100 11/08/18 09:00 Nasal Cannula 3.0 11/08/18 08:31 68 115/73 11/08/18 08:11 68 20 98 11/08/18 08:00 67 11/08/18 08:00 98.0 67 17 127/49 (75) 100 11/08/18 04:00 74 11/08/18 04:00 98.4 78 20 123/51 (75) 100 11/08/18 00:03 74 11/08/18 00:00 99.0 76 20 121/53 (75) 97 11/07/18 21:00 Nasal Cannula 3.0 11/07/18 20:00 99.0 80 18 122/53 (76) 98 11/07/18 19:03 79 11/07/18 17:10 97.9 83 16 126/55 (78) 96 11/07/18 16:00 80 Intake and Output 11/07/18 11/08/18 19:00 07:00 Intake Total 10 ml 330 ml Output Total 150 ml Balance 10 ml 180 ml IV Total 0 ml Tube Feeding 10 ml 330 ml Output Stool Total 150 ml # Voids 1 Laboratory Tests 11/08/18 04:00: White Blood Count 9.9, Red Blood Count 2.94L, Hemoglobin 8.8L, Hematocrit 26.6L , Mean Corpuscular Volume 91, Mean Corpuscular Hemoglobin 29.8, Mean Corpuscular Hemoglobin Concent 33.0, Red Cell Distribution Width 14.0, Platelet Count 227, Mean Platelet Volume 6.3L, Neutrophils (%) (Auto) 80.6H, Lymphocytes (%) (Auto) 6.4L, Monocytes (%) (Auto) 10.9H, Eosinophils (%) (Auto) 0.9, Basophils (%) (Auto) 1.3, Sodium Level 136, Potassium Level 3.2L, Chloride Level 101, Carbon Dioxide Level 28, Anion Gap 7, Blood Urea Nitrogen 27H, Creatinine 1.9#H, Estimat Glomerular Filtration Rate 26.9, Glucose Level 48L, Calcium Level 7.9L, Total Bilirubin 0.2, Aspartate Amino Transf (AST/SGOT) 18, Alanine Aminotransferase (ALT/SGPT) 19, Alkaline Phosphatase 116, Total Protein 6.3L, Albumin 1.9L, Globulin 4.4, Albumin/Globulin Ratio 0.4L Height (Feet): 4 Height (Inches): 11.00 Weight (Pounds): 86 General Appearance: no apparent distress, confused EENT: PERRL/EOMI, TMs normal Neck: non-tender, supple Respiratory/Chest: decreased breath sounds Abdomen: soft 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 Nov 08, 2018 16:02
[2018-11-08] MEDS ORDERED: NovoLOG Insulin Flexpen SUBQ SCH (16:30)
--- NOTE | 2018-11-08 19:20 | NUR ---
HAND-OFF: Report given to PAULA Belcher. No acute distress or shortness of breath noted. The patient's bed is in the lowest position, call light in reach, and fall precaution reinforced. Endorsed plan of care.
--- NOTE | 2018-11-08 19:21 | NUR ---
NURSE NOTES: Received report from PAULA Villagomez and Chelsey RN. Pt is resting in bed. In no acute distress. GT intact, GT feeding well tolerated. HOB elevated. Bed in lowest position, call light within reach. Will continue plan of care.
[2018-11-08 20:00] VITALS: BP 148/65
[2018-11-08] MEDS ORDERED: Levemir Flexpen SUBQ SCH (21:00)
[2018-11-08] MEDS ORDERED: Epoetin Alfa(ESRD on dialysis)10,000 unit/ml vial SUBQ SCH (21:00)
[2018-11-08] MEDS: Atorvastatin 80mg tab GT SCH (21:15)
--- NOTE | 2018-11-08 22:01 | Cardiology Report ---
APPROVED REPORT EKG Measurement Heart [id number] Normal sinus rhythm Prolonged QT Abnormal ECG
[2018-11-09] VITALS: BP 144/65
[2018-11-09 04:00] VITALS: BP 145/67
[2018-11-09] MEDS: NovoLOG Insulin Flexpen SUBQ SCH ×6 (06:30→21:00)
--- NOTE | 2018-11-09 06:58 | NUR ---
NURSE NOTES: Pt's blood glucose result was 45, rechecked with same glucometer and result was 44. Pt is awake and alert. Asymptomatic. Skin is slightly moist. Gave D50% as ordered. Rechecked after 20 mins, result was 171. Left Dr. Dukes a voicemail. Awaiting for call back. Will endorse to next shift.
--- NOTE | 2018-11-09 07:43 | NUR ---
HAND-OFF: Report given to PAULA Beck.
--- NOTE | 2018-11-09 07:45 | NUR ---
NURSE NOTES: Received report from Ye/RN, Patient is asleep, No distress/SOB noted at this time. Bed in low position, Call light within reach. Will continue plan of care.
[2018-11-09 08:00] VITALS: BP 161/66
[2018-11-09 08:49] LABS: ALANINE AMINOTRANSFERASE 9 U/L (12-78); ALBUMIN/GLOBULIN RATIO 0.4 (1.0-2.7); ALKALINE PHOSPHATASE 114 U/L (46-116); ANION GAP 10 mmol/L (5-15); ASPARTATE AMINO TRANSFERASE 18 U/L (15-37); BILIRUBIN,TOTAL 0.2 MG/DL (0.2-1.0); BLOOD UREA NITROGEN 32 mg/dL (7-18); CALCIUM 8.4 MG/DL (8.5-10.1); CARBON DIOXIDE 26 MMOL/L (21-32); CHLORIDE 100 MMOL/L (98-107); CREATININE 2.2 MG/DL (0.55-1.30); POTASSIUM 3.8 MMOL/L (3.5-5.1); SODIUM 136 MMOL/L (136-145)
[2018-11-09] MEDS: Docusate 100mg/10ml Liq GT SCH ×2 (09:22→22:27)
[2018-11-09] MEDS: Nephrovite tab (Rena-Vite) GT SCH (09:23)
[2018-11-09] MEDS: Tums 500mg GT SCH (09:23)
[2018-11-09] MEDS: Zinc Sulfate 220mg cap GT SCH ×2 (09:23→22:27)
[2018-11-09] MEDS: Calcitriol 0.25mcg Cap GT SCH (09:24)
[2018-11-09] MEDS: Ascorbic Acid 500mg tab GT SCH (09:24)
--- NOTE | 2018-11-09 09:30 | Consultation ---
DATE OF CONSULTATION: 11/09/2018 ENDOCRINOLOGY CONSULTATION: CONSULTING PHYSICIAN: Trent Dukes M.D. REFERRING PHYSICIAN: Umer Collier M.D. REASON FOR CONSULTATION: Diabetes management. HISTORY OF PRESENT ILLNESS: Most of the history is obtained from the review of the chart and medical records since the patient is not engaging in the interview. This patient is a 58-year-old female with past medical history of end-stage renal disease, on hemodialysis who presented with malfunctioning of dialysis catheter. The patient is on dialysis Sunday, Sunday, Sunday. The patient is a diabetic, has a G-tube, and on G-tube feeding for 16 hours a day. The tube feeding was stopped last night for a break for 8 hours. Levemir 10 units was given last night, which led to hypoglycemia this morning. I was called to manage diabetes and hypoglycemia. PAST MEDICAL HISTORY: 1. Type 2 diabetes. 2. End-stage renal disease, on hemodialysis. 3. Hypertension. PAST SURGICAL HISTORY: Dialysis access placement. FAMILY HISTORY: Noncontributory. SOCIAL HISTORY: No smoking, alcohol, or drug use. REVIEW OF SYSTEMS: Difficult to obtain. PHYSICAL EXAMINATION: VITAL SIGNS: Blood pressure 145/67, pulse of 90, temperature of 99.2, respiratory rate of 18. HEENT: Pupils are reactive to light. Sclerae anicteric. NECK: No JVD. HEART: Regular. LUNGS: Clear. ABDOMEN: Positive bowel sounds. G-tube noted. EXTREMITIES: Trace edema. LABORATORY VALUES: WBC 9.9, hemoglobin 8.8, hematocrit 26, platelets of 227. Sodium 136, potassium 3.2, chloride 101, bicarb 26, BUN 27, creatinine 1.9, and glucose of 48. Hemoglobin A1c of 7.3. DIAGNOSES: 1. End-stage disease on hemodialysis. 2. Dialysis access malfunction. 3. Diabetes, out of control with hypoglycemia. PLAN: 1. Change the tube feeding from 55 mL/hour for 16 hours to 40 mL/hour continuously. 2. Flush the tube feed with 100 mL of water every 6 hours. 3. Discontinue Levemir. 4. Change Humalog sliding scale every 6 to every 4 hours. 5. Hypoglycemia protocol is in order. 6. I will follow the patient closely during hospital stay for the management of diabetes. Thank you, Dr. Collier, for the courtesy of this consultation. Trent Dukes M.D. DR: CARRINGTON JOB#: [id number] CC:
[2018-11-09] MEDS ORDERED: NS 275ml ONE (09:57)
[2018-11-09] MEDS ORDERED: Tubing Blood Filter IV ONE (09:57)
--- NOTE | 2018-11-09 10:16 | General Progress Note ---
Assessment/Plan Status: stable Assessment/Plan: S: not verbally communicative, O: patient appears comfortable . Denies any chest pain or sob General Appearance: alert, Chronically Ill ENT: moist mucus membranes Neck: limited range of motion Respiratory: normal inspection, lungs clear Cardiovascular #1: normal inspection, regular rate, rhythm Gastrointestinal: normal inspection Musculoskeletal: swelling - left upper extremity edema Neurologic: alert, motor weakness Psychiatric: normal inspection Skin: other - decubitus ulcer Meds: Reviewed and reconciled in the chart, including modified SSI regiment A/P: 1- ESRD, h.o of , creation of AVF by Vascular Sx 2- Hypokalemia 3- Anemia-Acute 4- HTN 5- DM, uncontrolled with incidence of hypoglycemia Plan: Check Anemia panel Potassium supplementation S/P creation of AVF notes from Endo reviewed Subjective Allergies: Coded Allergies: No Known Allergies (Unverified , 11/06/18) Objective Last 24 Hour Vital Signs Date Time Temp Pulse Resp B/P (MAP) Pulse Ox O2 Delivery O2 Flow Rate FiO2 11/09/18 09:23 84 161/66 11/09/18 04:00 99.2 90 18 145/67 (93) 99 11/09/18 04:00 90 11/09/18 00:00 99.0 89 18 144/65 (91) 99 11/09/18 00:00 89 11/08/18 21:00 Nasal Cannula 3.0 11/08/18 20:00 97.0 88 16 148/65 (92) 99 11/08/18 20:00 88 11/08/18 16:00 97.9 84 18 139/63 (88) 99 11/08/18 16:00 83 11/08/18 12:00 97.9 76 19 143/58 (86) 100 11/08/18 12:00 80 Intake and Output 11/08/18 11/09/18 19:00 07:00 Intake Total 660 ml 220 ml Output Total 1200 ml 200 ml Balance -540 ml 20 ml Tube Feeding 660 ml 220 ml Output Stool Total 200 ml 200 ml Hemodialysis UF 1000 ml Laboratory Tests 11/09/18 06:40: Sodium Level 136, Potassium Level 3.8, Chloride Level 100, Carbon Dioxide Level 26, Anion Gap 10, Blood Urea Nitrogen 32H, Creatinine 2.2H, Estimat Glomerular Filtration Rate 22.8, Glucose Level 167#H, Calcium Level 8.4L, Total Bilirubin 0.2, Aspartate Amino Transf (AST/SGOT) 18, Alanine Aminotransferase (ALT/SGPT) 9L, Alkaline Phosphatase 114, Total Protein 6.6, Albumin 2.0L, Globulin 4.6, Albumin/Globulin Ratio 0.4L Height (Feet): 4 Height (Inches): 11.00 Weight (Pounds): 94 Umer Collier MD Nov 09, 2018 10:16
[2018-11-09 12:00] VITALS: BP 153/62
--- NOTE | 2018-11-09 12:39 | Surgery Progress Note ---
Surgery Progress Note Subjective Additional Comments no acute events. resting comfortable. good thrill noted. ostomy okay. exam stable. labs noted Objective Last 24 Hour Vital Signs Date Time Temp Pulse Resp B/P (MAP) Pulse Ox O2 Delivery O2 Flow Rate FiO2 11/09/18 09:23 84 161/66 11/09/18 08:00 100.0 84 18 161/66 (97) 97 11/09/18 04:00 99.2 90 18 145/67 (93) 99 11/09/18 04:00 90 11/09/18 00:00 99.0 89 18 144/65 (91) 99 11/09/18 00:00 89 11/08/18 21:00 Nasal Cannula 3.0 11/08/18 20:00 97.0 88 16 148/65 (92) 99 11/08/18 20:00 88 11/08/18 16:00 97.9 84 18 139/63 (88) 99 11/08/18 16:00 83 I&O Intake and Output 11/08/18 11/09/18 19:00 07:00 Intake Total 660 ml 220 ml Output Total 1200 ml 200 ml Balance -540 ml 20 ml Tube Feeding 660 ml 220 ml Output Stool Total 200 ml 200 ml Hemodialysis UF 1000 ml Dressing: saturated Wound: other Drains: other Cardiovascular: RSR Respiratory: clear Abdomen: soft, flat, present bowel sounds, non-distended Extremities: no tenderness, no cyanosis Laboratory Tests Test 11/09/18 06:40 Sodium Level 136 MMOL/L (136-145) Potassium Level 3.8 MMOL/L (3.5-5.1) Chloride Level 100 MMOL/L (98-107) Carbon Dioxide Level 26 MMOL/L (21-32) Anion Gap 10 mmol/L (5-15) Blood Urea Nitrogen 32 mg/dL (7-18) H Creatinine 2.2 MG/DL (0.55-1.30) H Estimat Glomerular Filtration Rate 22.8 mL/min (>60) Glucose Level 167 MG/DL (74-106) #H Calcium Level 8.4 MG/DL (8.5-10.1) L Total Bilirubin 0.2 MG/DL (0.2-1.0) Aspartate Amino Transf (AST/SGOT) 18 U/L (15-37) Alanine Aminotransferase (ALT/SGPT) 9 U/L (12-78) L Alkaline Phosphatase 114 U/L (46-116) Total Protein 6.6 G/DL (6.4-8.2) Albumin 2.0 G/DL (3.4-5.0) L Globulin 4.6 g/dL Albumin/Globulin Ratio 0.4 (1.0-2.7) L Plan Problems: (1) Sacral decubitus ulcer Assessment & Plan: Patient presented on admission with Full thickness stage 3 sacral pressure injury. Base of wound granular with scattered patches of yellow slough ,approx 50%. Edges are macerated. Non-blanchable erythema with induration periwound .Pt also noted to have old keloid scar inferior to base of wound on L buttocks.(L)6cm x (W)7.5cm x (D)0.2cm. DTPI noted to R ischium.Dark brown discoloration that is fluctuant.Borders are red tinged. Periwound without erythema or fluctuance.(L)2cm x (W)2cm. Non-blanchable erythema with fluctuance noted to R heel. Pt verbalized tenderness when heel minimally palpated. L heel is blanchable but boggy.Non-tender when palpated. Tx.Plan: Cleanse Sacral wound with Saline.Apply Therahoney.Apply Triad Paste periwound . Cover with Optifoam drsg.Change every 3 days and prn. Apply Triad Paste to Groin areas,medial aspects of thighs ,and both ischial areas with each perineal care. Apply Cavilon Skin Barrier to both heels. Cover each heel with Optifoam drsg .Change every 7 days and prn. APM/PROSPER Mattress overlay. Reposition at least every 2hours or as tolerated. Off-load heels with pillow. (2) Hypokalemia (3) Anemia (4) ESRD (end stage renal disease) on dialysis (5) Malfunction of arteriovenous dialysis fistula Assessment & Plan: s/p repair by vascular good thrill noted stable. Julio Martin Nov 09, 2018 12:39
[2018-11-09 16:00] VITALS: BP 134/57
--- NOTE | 2018-11-09 19:35 | NUR ---
HAND-OFF: Report given to Jean/RN, Patient is asleep, no sign of distress noted, in satable condition. Endorsed plan of care.
--- NOTE | 2018-11-09 19:36 | NUR ---
NURSE NOTES: Got report from Ebony RN. Pt in stable condition. Continue to monitor.
[2018-11-09 20:00] VITALS: BP 144/61
[2018-11-09] MEDS: Atorvastatin 80mg tab GT SCH (22:27)
[2018-11-10] VITALS: BP 150/64
[2018-11-10] MEDS: NovoLOG Insulin Flexpen SUBQ SCH ×6 (01:00→20:35)
[2018-11-10 04:08] VITALS: BP 135/58
--- NOTE | 2018-11-10 07:20 | NUR ---
HAND-OFF: Report given to Marina MITCHELL. Endorsed plan of care.
--- NOTE | 2018-11-10 07:25 | NUR ---
NURSE NOTES: Received patient from PAULA Rader. Patient is resting in bed, sleeping. No signs and symptoms of acute distress noted at this time. Breathing unlabored in 3 Lit Nasal cannula. Patient is on GTube, Running Nepro at 40 cc/hour. Bed in lowest positions with two side rails up, break engaged. Bed alarm on. Bed side table and call light within reach. Will continue to monitor and follow plan of care.
--- NOTE | 2018-11-10 07:36 | General Progress Note ---
Assessment/Plan Problem List: (1) Hypoglycemia ICD Codes: E16.2 - Hypoglycemia, unspecified SNOMED: 976250671 (2) Diabetes mellitus out of control ICD Codes: E11.65 - Type 2 diabetes mellitus with hyperglycemia SNOMED: 33491455, 713830509 (3) Malfunction of arteriovenous dialysis fistula ICD Codes: T82.590A - Other mechanical complication of surgically created arteriovenous fistula, initial encounter SNOMED: 955454026 (4) Sacral decubitus ulcer ICD Codes: L89.159 - Pressure ulcer of sacral region, unspecified stage SNOMED: 112886056 (5) ESRD (end stage renal disease) on dialysis ICD Codes: N18.6 - End stage renal disease; Z99.2 - Dependence on renal dialysis SNOMED: 442585012 Status: stable Assessment/Plan: continue NISS every 4 hours w/o basal insulin TF is continuous and tolerated at 40 cc/hour Subjective ROS Limited/Unobtainable: Yes Allergies: Coded Allergies: No Known Allergies (Unverified , 11/06/18) Subjective events noted Item Value Date Time Bedside Blood Glucose 162 mg/dl H 11/10/18 0638 Bedside Blood Glucose 195 mg/dl H 11/10/18 0100 Bedside Blood Glucose 227 mg/dl H 11/09/18 2100 Bedside Blood Glucose 232 mg/dl H 11/09/18 1800 Objective Last 24 Hour Vital Signs Date Time Temp Pulse Resp B/P (MAP) Pulse Ox O2 Delivery O2 Flow Rate FiO2 11/10/18 04:20 87 11/10/18 04:08 98.2 83 20 135/58 (83) 100 11/10/18 00:00 87 11/10/18 00:00 99.0 92 18 150/64 (92) 100 11/09/18 21:00 Nasal Cannula 3.0 11/09/18 20:00 84 11/09/18 20:00 96.0 86 18 144/61 (88) 100 11/09/18 16:00 85 11/09/18 16:00 98.9 89 20 134/57 (82) 100 11/09/18 12:00 97.2 86 19 153/62 (92) 100 11/09/18 12:00 85 11/09/18 09:23 84 161/66 11/09/18 09:00 Nasal Cannula 3.0 11/09/18 08:00 100.0 84 18 161/66 (97) 97 11/09/18 08:00 85 Intake and Output 11/09/18 11/10/18 19:00 07:00 Intake Total 40 ml Balance 40 ml Tube Feeding 40 ml Height (Feet): 4 Height (Inches): 11.00 Weight (Pounds): 95 General Appearance: lethargic Neck: normal alignment Cardiovascular: normal rate Respiratory/Chest: lungs clear Abdomen: normal bowel sounds Edema: no edema noted Arm (L), no edema noted Arm (R), no edema noted Leg (L), no edema noted Leg (R), no edema noted Pedal (L), no edema noted Pedal (R), no edema noted Generalized Objective Current Medications Medications (Trade) Dose Ordered Sig/Vineet Route PRN Reason Start Time Stop Time Status Last Admin Dose Admin Acetaminophen (Tylenol) 650 mg Q4H PRN GT Mild Pain/Temp > 100.5 11/07/18 01:15 12/07/18 01:14 11/08/18 06:30 Acetaminophen/ Hydrocodone Bitart ([place] 5/325) 1 tab TID PRN GT Moderate Pain (Pain Scale 4-6) 11/07/18 01:15 11/14/18 01:14 Amlodipine Besylate (Norvasc) 10 mg DAILY GT 11/07/18 09:00 12/07/18 08:59 11/09/18 09:23 Ascorbic Acid (Vitamin C) 500 mg DAILY GT 11/07/18 09:00 12/07/18 08:59 11/09/18 09:24 Atorvastatin Calcium (Lipitor) 80 mg BEDTIME GT 11/07/18 21:00 12/07/18 20:59 11/09/18 22:27 Bisacodyl (Dulcolax) 10 mg DAILY PRN RECTAL Constipation 11/07/18 02:30 12/07/18 01:59 Calcitriol (Rocatrol) 0.5 mcg DAILY GT 11/08/18 09:00 12/08/18 08:59 11/09/18 09:24 Calcium Carbonate (Tums) 500 mg DAILY GT 11/07/18 09:00 12/07/18 08:59 11/09/18 09:23 Dextrose (Dextrose 50%) 25 ml Q30M PRN IV Hypoglycemia 11/08/18 12:15 12/08/18 12:14 Dextrose (Dextrose 50%) 50 ml Q30M PRN IV Hypoglycemia 11/08/18 12:15 12/08/18 12:14 11/09/18 06:31 Docusate Sodium (Colace) 50 mg Q12HR GT 11/07/18 09:00 12/07/18 08:59 11/09/18 22:27 Epoetin Moy (Epoetin Moy(ESRD on dialysis)) 10,000 unit SUBQ 11/08/18 21:00 12/08/18 20:59 11/08/18 21:15 Insulin Aspart (NovoLOG) EVERY 4 HOURS SUBQ 11/09/18 09:00 12/08/18 16:29 11/10/18 05:00 Lansoprazole (Prevacid) 30 mg DAILY GT 11/07/18 09:00 12/07/18 08:59 11/09/18 09:24 Magnesium Hydroxide (Mom) 30 ml DAILY PRN GT Constipation 11/07/18 02:00 12/07/18 01:59 Sodium Phosphate (Fleet's Sodium Phosl Enema) 133 ml Q72H PRN RECTAL Constipation 11/07/18 03:00 12/07/18 02:59 Vitamin B Complex/ Vit C/Folic Acid (Nephrovite) 1 tab DAILY GT 11/07/18 09:00 12/07/18 08:59 11/09/18 09:23 Zinc Sulfate (Zinc Sulfate) 220 mg Q12HR GT 11/07/18 09:00 12/07/18 08:59 11/09/18 22:27 Trent Dukes MD Nov 10, 2018 07:36
[2018-11-10 08:00] VITALS: BP 140/56
[2018-11-10] MEDS: Zinc Sulfate 220mg cap GT SCH ×2 (08:48→20:30)
[2018-11-10] MEDS: Docusate 100mg/10ml Liq GT SCH ×2 (08:48→20:31)
[2018-11-10] MEDS: Calcitriol 0.25mcg Cap GT SCH (08:48)
[2018-11-10] MEDS: Ascorbic Acid 500mg tab GT SCH (08:48)
[2018-11-10] MEDS: Tums 500mg GT SCH (08:48)
[2018-11-10] MEDS: Nephrovite tab (Rena-Vite) GT SCH (08:48)
--- NOTE | 2018-11-10 10:07 | General Progress Note ---
Assessment/Plan Status: stable Assessment/Plan: A/P: # Anemia of chronic disease due to underlying chronic medical issues, multifactorial --> Anemia workup has been ordered, rule out gi bleed --> No evidence of hemolysis is noted, peripheral smear has been reviewed. --> Hgb goal >7. Transfuse prn basis --> Epogen or iron at this time is not particularly indicated --> Medications have been reviewed --> evaluate with Gi team prn --> transfuse if hgb is < 7 (will trend CBC daily) --> low threshold for gi evaluation in case has occult + # ESRD, h.o of , creation of AVF by Vascular Sx --> evaluation with vascular surgery --> also may need iron based on anemia results --> hd as per renal team # Hypokalemia --> replete with K as needed per renal # Secondary hyperparathyroidism --> ca supplementation as needed and renal recs # Decubitus ulcerations --> as per surgery eval The timing of this note does not necessarily reflect the time of the patient was seen. Greatly appreciate consultation! Subjective Constitutional: Denies: no symptoms, chills, diaphoresis, fever, malaise, weakness, other HEENT: Denies: no symptoms, eye pain, blurred vision, tearing, double vision, ear pain, ear discharge, nose pain, nose congestion, throat pain, throat swelling, mouth pain, mouth swelling, other Cardiovascular: Denies: no symptoms, chest pain, edema, irregular heart rate, lightheadedness, palpitations, syncope, other Respiratory: Denies: no symptoms, cough, orthopnea, shortness of breath, SOB with excertion, SOB at rest, sputum, stridor, wheezing, other Gastrointestinal/Abdominal: Denies: no symptoms, abdomen distended, abdominal pain, black stools, tarry stools, blood in stool, constipated, diarrhea, difficulty swallowing, nausea, poor appetite, poor fluid intake, rectal bleeding , vomiting, other Genitourinary: Denies: no symptoms, burning, discharge, frequency, flank pain, hematuria, incontinence, pain, urgency, other Endocrine: Denies: no symptoms, excessive sweating, flushing, intolerance to cold, intolerance to heat, increased hunger, increased thirst, increased urine, unexplained weight gain, unexplained weight loss, other Hematologic/Lymphatic: Denies: no symptoms, anemia, easy bleeding, easy bruising, other Allergies: Coded Allergies: No Known Allergies (Unverified , 11/06/18) Subjective 11/08: nonverbal, improved h/h, pending hd 11/10: no events, no fevers, no night sweats, avf is with positive thrill Objective Last 24 Hour Vital Signs Date Time Temp Pulse Resp B/P (MAP) Pulse Ox O2 Delivery O2 Flow Rate FiO2 11/10/18 08:48 92 140/56 11/10/18 08:00 99.1 92 20 140/56 (84) 99 11/10/18 04:20 87 11/10/18 04:08 98.2 83 20 135/58 (83) 100 11/10/18 00:00 87 11/10/18 00:00 99.0 92 18 150/64 (92) 100 11/09/18 21:00 Nasal Cannula 3.0 11/09/18 20:00 84 11/09/18 20:00 96.0 86 18 144/61 (88) 100 11/09/18 16:00 85 11/09/18 16:00 98.9 89 20 134/57 (82) 100 11/09/18 12:00 97.2 86 19 153/62 (92) 100 11/09/18 12:00 85 Intake and Output 11/09/18 11/10/18 19:00 07:00 Intake Total 40 ml Balance 40 ml Tube Feeding 40 ml Height (Feet): 4 Height (Inches): 11.00 Weight (Pounds): 95 Objective General Appearance: alert, Chronically Ill, nonverbal ENT: moist mucus membranes Neck: limited range of motion Respiratory: normal inspection, lungs clear Cardiovascular: normal inspection, regular rate, rhythm Gastrointestinal: normal inspection Musculoskeletal: swelling - left upper extremity edema Neurologic: alert, motor weakness Psychiatric: normal inspection Skin: other - decubitus ulcer, +++ Avf with thrill Jayden Hernandez MD Nov 10, 2018 10:07
[2018-11-10 11:51] LABS: ALANINE AMINOTRANSFERASE 8 U/L (12-78); ALBUMIN 1.9 G/DL (3.4-5.0); ALBUMIN/GLOBULIN RATIO 0.4 (1.0-2.7); ALKALINE PHOSPHATASE 114 U/L (46-116); ANION GAP 9 mmol/L (5-15); ASPARTATE AMINO TRANSFERASE 16 U/L (15-37); BILIRUBIN,TOTAL 0.2 MG/DL (0.2-1.0); BLOOD UREA NITROGEN 48 mg/dL (7-18); CALCIUM 8.3 MG/DL (8.5-10.1); CARBON DIOXIDE 27 MMOL/L (21-32); CHLORIDE 99 MMOL/L (98-107); CREATININE 3.2 MG/DL (0.55-1.30); POTASSIUM 4.2 MMOL/L (3.5-5.1); SODIUM 134 MMOL/L (136-145)
[2018-11-10 11:56] LABS: HEMATOCRIT 25.6 % (37.0-47.0); HEMOGLOBIN 8.2 G/DL (12.0-16.0); MEAN CORPUSCULAR VOLUME 92 FL (80-99); PLATELET COUNT 249 K/UL (150-450); RED BLOOD COUNT 2.77 M/UL (4.20-5.40); RED CELL DISTRIBUTION WIDTH 14.8 % (11.6-14.8); WHITE BLOOD COUNT 11.2 K/UL (4.8-10.8)
[2018-11-10 12:00] VITALS: BP 143/62
[2018-11-10 12:11] LABS: IRON 21 ug/dL (50-175); TOTAL IRON BINDING CAPACITY 145 ug/dL (250-450)
[2018-11-10 12:30] LABS: % IRON SATURATION 14 % (15-50)
[2018-11-10] MEDS: Acetaminophen 650mg/20.3ml GT PRN (12:49)
--- NOTE | 2018-11-10 12:55 | Surgery Progress Note ---
Surgery Progress Note Subjective Additional Comments no acute events. comfortable. leukocytosis. anemia work up in process. renal insufficiency. wound dressing changes going well. Objective Last 24 Hour Vital Signs Date Time Temp Pulse Resp B/P (MAP) Pulse Ox O2 Delivery O2 Flow Rate FiO2 11/10/18 09:00 Nasal Cannula 3.0 11/10/18 08:48 92 140/56 11/10/18 08:00 99.1 92 20 140/56 (84) 99 11/10/18 08:00 87 11/10/18 04:20 87 11/10/18 04:08 98.2 83 20 135/58 (83) 100 11/10/18 00:00 87 11/10/18 00:00 99.0 92 18 150/64 (92) 100 11/09/18 21:00 Nasal Cannula 3.0 11/09/18 20:00 84 11/09/18 20:00 96.0 86 18 144/61 (88) 100 11/09/18 16:00 85 11/09/18 16:00 98.9 89 20 134/57 (82) 100 I&O Intake and Output 11/09/18 11/10/18 19:00 07:00 Intake Total 40 ml Balance 40 ml Tube Feeding 40 ml Dressing: saturated Wound: clean Drains: none Cardiovascular: RSR Respiratory: clear Abdomen: soft, flat, non-tender, present bowel sounds Extremities: no tenderness, no cyanosis Laboratory Tests Test 11/10/18 10:45 11/10/18 10:50 White Blood Count 11.2 K/UL (4.8-10.8) H Red Blood Count 2.77 M/UL (4.20-5.40) L Hemoglobin 8.2 G/DL (12.0-16.0) L Hematocrit 25.6 % (37.0-47.0) L Mean Corpuscular Volume 92 FL (80-99) Mean Corpuscular Hemoglobin 29.7 PG (27.0-31.0) Mean Corpuscular Hemoglobin Concent 32.1 G/DL (32.0-36.0) Red Cell Distribution Width 14.8 % (11.6-14.8) Platelet Count 249 K/UL (150-450) Mean Platelet Volume 5.5 FL (6.5-10.1) L Neutrophils (%) (Auto) % (45.0-75.0) Lymphocytes (%) (Auto) % (20.0-45.0) Monocytes (%) (Auto) % (1.0-10.0) Eosinophils (%) (Auto) % (0.0-3.0) Basophils (%) (Auto) % (0.0-2.0) Differential Total Cells Counted 100 Neutrophils % (Manual) 87 % (45-75) H Lymphocytes % (Manual) 3 % (20-45) L Monocytes % (Manual) 8 % (1-10) Eosinophils % (Manual) 2 % (0-3) Basophils % (Manual) 0 % (0-2) Band Neutrophils 0 % (0-8) Platelet Estimate Adequate Platelet Morphology Normal Polychromasia 1+ Anisocytosis 1+ Reticulocyte Count Pending Sickle Cell Screen Pending Haptoglobin Pending Fibrinogen 532 mg/dL (200-400) H Iron Level 21 ug/dL (50-175) L Total Iron Binding Capacity 145 ug/dL (250-450) L Percent Iron Saturation 14 % (15-50) L Unsaturated Iron Binding 124 ug/dL (112-346) Ferritin Pending Carcinoembryonic Antigen Pending Sodium Level 134 MMOL/L (136-145) L Potassium Level 4.2 MMOL/L (3.5-5.1) Chloride Level 99 MMOL/L (98-107) Carbon Dioxide Level 27 MMOL/L (21-32) Anion Gap 9 mmol/L (5-15) Blood Urea Nitrogen 48 mg/dL (7-18) H Creatinine 3.2 MG/DL (0.55-1.30) H Estimat Glomerular Filtration Rate 14.8 mL/min (>60) Glucose Level 132 MG/DL (74-106) H Calcium Level 8.3 MG/DL (8.5-10.1) L Total Bilirubin 0.2 MG/DL (0.2-1.0) Aspartate Amino Transf (AST/SGOT) 16 U/L (15-37) Alanine Aminotransferase (ALT/SGPT) 8 U/L (12-78) L Alkaline Phosphatase 114 U/L (46-116) Total Protein 6.4 G/DL (6.4-8.2) Albumin 1.9 G/DL (3.4-5.0) L Globulin 4.5 g/dL Albumin/Globulin Ratio 0.4 (1.0-2.7) L Plan Problems: (1) Sacral decubitus ulcer Assessment & Plan: Patient presented on admission with Full thickness stage 3 sacral pressure injury. Base of wound granular with scattered patches of yellow slough ,approx 50%. Edges are macerated. Non-blanchable erythema with induration periwound .Pt also noted to have old keloid scar inferior to base of wound on L buttocks.(L)6cm x (W)7.5cm x (D)0.2cm. DTPI noted to R ischium.Dark brown discoloration that is fluctuant.Borders are red tinged. Periwound without erythema or fluctuance.(L)2cm x (W)2cm. Non-blanchable erythema with fluctuance noted to R heel. Pt verbalized tenderness when heel minimally palpated. L heel is blanchable but boggy.Non-tender when palpated. Tx.Plan: Cleanse Sacral wound with Saline.Apply Therahoney.Apply Triad Paste periwound . Cover with Optifoam drsg.Change every 3 days and prn. Apply Triad Paste to Groin areas,medial aspects of thighs ,and both ischial areas with each perineal care. Apply Cavilon Skin Barrier to both heels. Cover each heel with Optifoam drsg .Change every 7 days and prn. APM/PROSPER Mattress overlay. Reposition at least every 2hours or as tolerated. Off-load heels with pillow. (2) Hypokalemia (3) Anemia Assessment & Plan: work up being completed by Heme f/u labs (4) ESRD (end stage renal disease) on dialysis Assessment & Plan: as per renal trend labs (5) Malfunction of arteriovenous dialysis fistula Assessment & Plan: s/p repair by vascular good thrill noted stable. Julio Martin Nov 10, 2018 12:55
[2018-11-10 13:00] LABS: FERRITIN 1283 NG/ML (8-388)
--- NOTE | 2018-11-10 13:42 | Nephrology Progress Note ---
Assessment/Plan Problem List: (1) Hypokalemia Assessment & Plan: -cont hd on normal K bath -cont tube feeds ICD Codes: E87.6 - Hypokalemia; Z99.2 - Dependence on renal dialysis SNOMED: 81608415 (2) Anemia Assessment & Plan: -epogen in am with hd -no overt bleeding noted -added protonix ICD Codes: D64.9 - Anemia, unspecified SNOMED: 667772335 (3) ESRD (end stage renal disease) on dialysis Assessment & Plan: -next hd in am, watch blood flow -watch volume status, access care -adjust meds to lower crcl ICD Codes: N18.6 - End stage renal disease; Z99.2 - Dependence on renal dialysis SNOMED: 879657173 (4) Malfunction of arteriovenous dialysis fistula Assessment & Plan: -s/p surgery, watch access ICD Codes: T82.590A - Other mechanical complication of surgically created arteriovenous fistula, initial encounter SNOMED: 698643022 Status: stable Subjective Date patient seen: Nov 10, 2018 Allergies: Coded Allergies: No Known Allergies (Unverified , 11/06/18) Subjective pt. seen and examined tolerating feeds h/h slightly down wound care noted Objective Last 24 Hour Vital Signs Date Time Temp Pulse Resp B/P (MAP) Pulse Ox O2 Delivery O2 Flow Rate FiO2 11/10/18 09:00 Nasal Cannula 3.0 11/10/18 08:48 92 140/56 11/10/18 08:00 99.1 92 20 140/56 (84) 99 11/10/18 08:00 87 11/10/18 04:20 87 11/10/18 04:08 98.2 83 20 135/58 (83) 100 11/10/18 00:00 87 11/10/18 00:00 99.0 92 18 150/64 (92) 100 11/09/18 21:00 Nasal Cannula 3.0 11/09/18 20:00 84 11/09/18 20:00 96.0 86 18 144/61 (88) 100 11/09/18 16:00 85 11/09/18 16:00 98.9 89 20 134/57 (82) 100 Intake and Output 11/09/18 11/10/18 19:00 07:00 Intake Total 40 ml Balance 40 ml Tube Feeding 40 ml Laboratory Tests 11/10/18 10:45: White Blood Count 11.2H, Red Blood Count 2.77L, Hemoglobin 8.2L, Hematocrit 25.6L, Mean Corpuscular Volume 92, Mean Corpuscular Hemoglobin 29.7, Mean Corpuscular Hemoglobin Concent 32.1, Red Cell Distribution Width 14.8, Platelet Count 249, Mean Platelet Volume 5.5L, Neutrophils (%) (Auto) , Lymphocytes (%) ( Auto) , Monocytes (%) (Auto) , Eosinophils (%) (Auto) , Basophils (%) (Auto) , Differential Total Cells Counted 100, Neutrophils % (Manual) 87H, Lymphocytes % (Manual) 3L, Monocytes % (Manual) 8, Eosinophils % (Manual) 2, Basophils % ( Manual) 0, Band Neutrophils 0, Platelet Estimate Adequate, Platelet Morphology Normal, Polychromasia 1+, Anisocytosis 1+, Reticulocyte Count 2.2H, Sickle Cell Screen [Pending], Haptoglobin [Pending], Fibrinogen 532H, Iron Level 21L, Total Iron Binding Capacity 145L, Percent Iron Saturation 14L, Unsaturated Iron Binding 124, Ferritin 1283H, Carcinoembryonic Antigen [Pending] 11/10/18 10:50: Sodium Level 134L, Potassium Level 4.2, Chloride Level 99, Carbon Dioxide Level 27, Anion Gap 9, Blood Urea Nitrogen 48H, Creatinine 3.2H, Estimat Glomerular Filtration Rate 14.8, Glucose Level 132H, Calcium Level 8.3L, Total Bilirubin 0.2, Aspartate Amino Transf (AST/SGOT) 16, Alanine Aminotransferase (ALT/SGPT) 8L, Alkaline Phosphatase 114, Total Protein 6.4, Albumin 1.9L, Globulin 4.5, Albumin/Globulin Ratio 0.4L Height (Feet): 4 Height (Inches): 11.00 Weight (Pounds): 95 General Appearance: no apparent distress, lethargic, confused EENT: PERRL/EOMI, normal ENT inspection Cardiovascular: normal rate Respiratory/Chest: decreased breath sounds Abdomen: non tender, soft Neurologic: technical administrator II-XII grossly normal, responsive Raphael Conte M.D. Nov 10, 2018 13:42
--- NOTE | 2018-11-10 14:53 | NUR ---
NURSE NOTES: Called to [facility] for confirm the hemodialysis for tomorrow, spoke with Lencho and he supposed to paged a nurse so we can confirm that.
[2018-11-10 16:00] VITALS: BP 144/48
--- NOTE | 2018-11-10 19:15 | NUR ---
HAND-OFF: Report given to PAULA Rader.
--- NOTE | 2018-11-10 19:16 | NUR ---
NURSE NOTES: Got report from Marina MITCHELL. Pt in stable condition. Continue to monitor.
[2018-11-10 20:00] VITALS: BP 134/65
[2018-11-10] MEDS: Atorvastatin 80mg tab GT SCH (20:31)
[2018-11-11] VITALS: BP 125/89
[2018-11-11] MEDS: NovoLOG Insulin Flexpen SUBQ SCH ×4 (01:00→13:47)
--- NOTE | 2018-11-11 03:30 | NUR ---
NURSE NOTES: Called [facility] at [phone] to confirm dialysis today 11/11/18. Spoke to [place] at [facility] to confirm. Continue to monitor.
[2018-11-11 03:47] VITALS: BP 141/70
--- NOTE | 2018-11-11 06:35 | General Progress Note ---
Assessment/Plan Problem List: (1) Hypoglycemia ICD Codes: E16.2 - Hypoglycemia, unspecified SNOMED: 426991757 (2) Diabetes mellitus out of control ICD Codes: E11.65 - Type 2 diabetes mellitus with hyperglycemia SNOMED: 58818077, 815548126 (3) Malfunction of arteriovenous dialysis fistula ICD Codes: T82.590A - Other mechanical complication of surgically created arteriovenous fistula, initial encounter SNOMED: 165828658 (4) Sacral decubitus ulcer ICD Codes: L89.159 - Pressure ulcer of sacral region, unspecified stage SNOMED: 235741716 (5) ESRD (end stage renal disease) on dialysis ICD Codes: N18.6 - End stage renal disease; Z99.2 - Dependence on renal dialysis SNOMED: 132119848 Status: stable Assessment/Plan: add Levemir 8 units daily continue NISS every 4 hours w/o basal insulin Subjective ROS Limited/Unobtainable: Yes Allergies: Coded Allergies: No Known Allergies (Unverified , 11/06/18) Subjective events noted glucose elevated this morning Item Value Date Time Bedside Blood Glucose 315 mg/dl H 11/11/18 0449 Bedside Blood Glucose 109 mg/dl 11/11/18 0100 Bedside Blood Glucose 193 mg/dl H 11/10/18 2100 Bedside Blood Glucose 131 mg/dl H 11/10/18 1700 Bedside Blood Glucose 162 mg/dl H 11/10/18 1303 Bedside Blood Glucose 159 mg/dl H 11/10/18 0920 Bedside Blood Glucose 162 mg/dl H 11/10/18 0638 Bedside Blood Glucose 195 mg/dl H 11/10/18 0100 Objective Last 24 Hour Vital Signs Date Time Temp Pulse Resp B/P (MAP) Pulse Ox O2 Delivery O2 Flow Rate FiO2 11/11/18 04:20 87 11/11/18 03:47 97.8 82 20 141/70 (93) 99 11/11/18 00:00 97.6 75 18 125/89 (101) 11/11/18 00:00 97.6 75 18 125/89 (101) 11/11/18 00:00 76 11/10/18 21:00 Nasal Cannula 3.0 11/10/18 20:00 97.5 78 18 134/65 (88) 99 11/10/18 20:00 79 11/10/18 16:00 97.9 80 20 144/48 (80) 99 11/10/18 16:00 79 11/10/18 12:00 82 11/10/18 12:00 99.9 82 20 143/62 (89) 96 11/10/18 09:00 Nasal Cannula 3.0 11/10/18 08:48 92 140/56 11/10/18 08:00 99.1 92 20 140/56 (84) 99 11/10/18 08:00 87 Laboratory Tests 11/10/18 10:45: White Blood Count 11.2H, Red Blood Count 2.77L, Hemoglobin 8.2L, Hematocrit 25.6L, Mean Corpuscular Volume 92, Mean Corpuscular Hemoglobin 29.7, Mean Corpuscular Hemoglobin Concent 32.1, Red Cell Distribution Width 14.8, Platelet Count 249, Mean Platelet Volume 5.5L, Neutrophils (%) (Auto) , Lymphocytes (%) ( Auto) , Monocytes (%) (Auto) , Eosinophils (%) (Auto) , Basophils (%) (Auto) , Differential Total Cells Counted 100, Neutrophils % (Manual) 87H, Lymphocytes % (Manual) 3L, Monocytes % (Manual) 8, Eosinophils % (Manual) 2, Basophils % ( Manual) 0, Band Neutrophils 0, Platelet Estimate Adequate, Platelet Morphology Normal, Polychromasia 1+, Anisocytosis 1+, Reticulocyte Count 2.2H, Sickle Cell Screen [Pending], Haptoglobin [Pending], Fibrinogen 532H, Iron Level 21L, Total Iron Binding Capacity 145L, Percent Iron Saturation 14L, Unsaturated Iron Binding 124, Ferritin 1283H, Carcinoembryonic Antigen [Pending] 11/10/18 10:50: Sodium Level 134L, Potassium Level 4.2, Chloride Level 99, Carbon Dioxide Level 27, Anion Gap 9, Blood Urea Nitrogen 48H, Creatinine 3.2H, Estimat Glomerular Filtration Rate 14.8, Glucose Level 132H, Calcium Level 8.3L, Total Bilirubin 0.2, Aspartate Amino Transf (AST/SGOT) 16, Alanine Aminotransferase (ALT/SGPT) 8L, Alkaline Phosphatase 114, Total Protein 6.4, Albumin 1.9L, Globulin 4.5, Albumin/Globulin Ratio 0.4L Height (Feet): 4 Height (Inches): 11.00 Weight (Pounds): 95 General Appearance: no apparent distress Neck: normal alignment Cardiovascular: normal rate Respiratory/Chest: lungs clear Abdomen: normal bowel sounds Pelvis: normal external exam Edema: no edema noted Arm (L), no edema noted Arm (R), no edema noted Leg (L), no edema noted Leg (R), no edema noted Pedal (L), no edema noted Pedal (R), no edema noted Generalized Objective Current Medications Medications (Trade) Dose Ordered Sig/Vineet Route PRN Reason Start Time Stop Time Status Last Admin Dose Admin Acetaminophen (Tylenol) 650 mg Q4H PRN GT Mild Pain/Temp > 100.5 11/07/18 01:15 12/07/18 01:14 11/10/18 12:49 Acetaminophen/ Hydrocodone Bitart ([place] 5/325) 1 tab TID PRN GT Moderate Pain (Pain Scale 4-6) 11/07/18 01:15 11/14/18 01:14 Amlodipine Besylate (Norvasc) 10 mg DAILY GT 11/07/18 09:00 12/07/18 08:59 11/10/18 08:48 Ascorbic Acid (Vitamin C) 500 mg DAILY GT 11/07/18 09:00 12/07/18 08:59 11/10/18 08:48 Atorvastatin Calcium (Lipitor) 80 mg BEDTIME GT 11/07/18 21:00 12/07/18 20:59 11/10/18 20:31 Bisacodyl (Dulcolax) 10 mg DAILY PRN RECTAL Constipation 11/07/18 02:30 12/07/18 01:59 Calcitriol (Rocatrol) 0.5 mcg DAILY GT 11/08/18 09:00 12/08/18 08:59 11/10/18 08:48 Calcium Carbonate (Tums) 500 mg DAILY GT 11/07/18 09:00 12/07/18 08:59 11/10/18 08:48 Dextrose (Dextrose 50%) 25 ml Q30M PRN IV Hypoglycemia 11/08/18 12:15 12/08/18 12:14 Dextrose (Dextrose 50%) 50 ml Q30M PRN IV Hypoglycemia 11/08/18 12:15 12/08/18 12:14 11/09/18 06:31 Docusate Sodium (Colace) 50 mg Q12HR GT 11/07/18 09:00 12/07/18 08:59 11/10/18 20:31 Epoetin Moy (Epoetin Moy(ESRD on dialysis)) 10,000 unit SUN-SUN-SUN SUBQ 11/08/18 21:00 12/08/18 20:59 11/08/18 21:15 Epoetin Moy (Epoetin Moy(ESRD on dialysis)) 10,000 unit SUBQ 11/11/18 21:00 12/11/18 20:59 Insulin Aspart (NovoLOG) EVERY 4 HOURS SUBQ 11/09/18 09:00 12/08/18 16:29 11/11/18 04:49 Lansoprazole (Prevacid) 30 mg DAILY GT 11/07/18 09:00 12/07/18 08:59 11/10/18 08:48 Magnesium Hydroxide (Mom) 30 ml DAILY PRN GT Constipation 11/07/18 02:00 12/07/18 01:59 Sodium Phosphate (Fleet's Sodium Phosl Enema) 133 ml Q72H PRN RECTAL Constipation 11/07/18 03:00 12/07/18 02:59 Vitamin B Complex/ Vit C/Folic Acid (Nephrovite) 1 tab DAILY GT 11/07/18 09:00 12/07/18 08:59 11/10/18 08:48 Zinc Sulfate (Zinc Sulfate) 220 mg Q12HR GT 11/07/18 09:00 12/07/18 08:59 11/10/18 20:30 Trent Dukes MD Nov 11, 2018 06:35
--- NOTE | 2018-11-11 07:10 | NUR ---
HAND-OFF: Report given to Marina MITCHELL. Endorsed plan of care.
--- NOTE | 2018-11-11 07:12 | NUR ---
NURSE NOTES: Received patient from PAULA Rader. Patient is resting in bed, sleeping. No signs and symptoms of acute distress noted at this time. Breathing unlabored in 3 Lit Nasal cannula. Patient is on GTube, Running Nepro at 40 cc/hour. Colostomy bag in place. Bed in lowest positions with two side rails up, break engaged. Bed alarm on. Bed side table and call light within reach. Will continue to monitor and follow plan of care.
[2018-11-11 08:00] VITALS: BP 156/69
[2018-11-11] MEDS ORDERED: Levemir Flexpen SUBQ SCH (09:00)
[2018-11-11] MEDS: Docusate 100mg/10ml Liq GT SCH (09:08)
[2018-11-11] MEDS: Nephrovite tab (Rena-Vite) GT SCH (09:09)
[2018-11-11] MEDS: Calcitriol 0.25mcg Cap GT SCH (09:09)
[2018-11-11] MEDS: Zinc Sulfate 220mg cap GT SCH (09:09)
[2018-11-11] MEDS: Tums 500mg GT SCH (09:09)
[2018-11-11] MEDS: Ascorbic Acid 500mg tab GT SCH (09:09)
[2018-11-11] MEDS ORDERED: RETACRIT10000 UNIT SUBQ (09:38)
[2018-11-11] MEDS ORDERED: LEVEMIR FL100 UNIT/1 SUBQ (09:38)
[2018-11-11] MEDS ORDERED: NOVOLOG100 UNITS1 SUBQ (09:38)
[2018-11-11] MEDS ORDERED: D50w IV (09:38)
[2018-11-11 10:05] LABS: BASOPHILS % (AUTO) 1.3 % (0.0-2.0); EOSINOPHILS % (AUTO) 1.9 % (0.0-3.0); HEMATOCRIT 27.2 % (37.0-47.0); HEMOGLOBIN 8.7 G/DL (12.0-16.0); LYMPHOCYTES % (AUTO) 6.6 % (20.0-45.0); MEAN CORPUSCULAR VOLUME 93 FL (80-99); MONOCYTES % (AUTO) 7.8 % (1.0-10.0); NEUTROPHILS % (AUTO) 82.5 % (45.0-75.0); PLATELET COUNT 289 K/UL (150-450); RED BLOOD COUNT 2.91 M/UL (4.20-5.40); RED CELL DISTRIBUTION WIDTH 14.9 % (11.6-14.8); WHITE BLOOD COUNT 13.6 K/UL (4.8-10.8)
--- NOTE | 2018-11-11 10:27 | NUR ---
CASE MANAGEMENT:REVIEW 11/11/18 SI: CLOGGED FEMORAL CATHETER CREATION OF AVF. ACUTE ANEMIA. SACRAL DECUB 98.4 82 20 156/69 96% ON 3L WBC+13.6 H/H-8.7/27.2 BUN+48 CR+3.2 IS: PROCRIT SQ MWF LEVEMIR SQ QD NORVASC GT QD : TELEMETRY STATUS
[2018-11-11 12:00] VITALS: BP 143/91
--- NOTE | 2018-11-11 12:11 | NUR ---
RD ASSESSMENT & RECOMMENDATIONS SEE CARE ACTIVITY FOR COMPLETE ASSESSMENT DAILY ESTIMATED NEEDS: Needs based on ESRD on HD, wound 39.5kg 35-40 kcals/kg 1454-7402 total kcals 1.25-1.8 g protein/kg 49-71 g total protein Fluid per MD, on HD mL/kg total fluid mLs NUTRITION DIAGNOSIS: 1) Increased kcal and protein needs r/t wound healing and renal dysfunction as evidenced by pt w/ stage 3 sacral wound, DTPI R ischium wound, and non-blanchable erythema at R heel, w/ ESRD on HD 2) Swallowing difficulty r/t dysphagia as evidenced by pt is GT dep CURRENT TF:Nepro @ 40ml/hr x 24 hrs ENTERAL NUTRITION RECOMMENDATIONS: NEPRO @35ml/hr x24 hrs to provide 840ml, 1512 kcal, 68g prot, 611ml free H2O - DECREASE GOAL RATE TO 35ML/HR -> meets 100% est kcal/protein needs. - Flush per MD/ HOB over 30 degrees ADDITIONAL RECOMMENDATIONS: 1) Obtain Calibrated bed scale wts PER SNF (11/06/18): HT 60 inches, WT 87# (39.5kg) 2) WOUND CARE: Add RAFAEL BID Cont to add Nephrovite and Vit C daily 3) TF recs as above- DECREASE GOAL RATE TO 35ML/HR X 24 HRS
--- NOTE | 2018-11-11 13:32 | General Progress Note ---
Assessment/Plan Status: stable Assessment/Plan: A/P: # Anemia of chronic disease due to underlying chronic medical issues, multifactorial.Anemia workup has been ordered, rule out gi bleed, ferritin is 1283, likely inflammatory componenet to anemia --> No evidence of hemolysis is noted, peripheral smear has been reviewed. --> Hgb goal >7. Transfuse prn basis --> Epogen to continue for esrd --> Medications have been reviewed --> evaluate with Gi team prn --> transfuse if hgb is < 7 (will trend CBC daily) --> low threshold for gi evaluation in case has occult + # ESRD, h.o of , creation of AVF by Vascular Sx --> evaluation with vascular surgery --> also may need iron based on anemia results --> hd as per renal team ==> continue epo # Hypokalemia --> replete with K as needed per renal # Secondary hyperparathyroidism --> ca supplementation as needed and renal recs # Decubitus ulcerations --> as per surgery eval The timing of this note does not necessarily reflect the time of the patient was seen. Greatly appreciate consultation! Subjective Constitutional: Denies: no symptoms, chills, diaphoresis, fever, malaise, weakness, other HEENT: Denies: no symptoms, eye pain, blurred vision, tearing, double vision, ear pain, ear discharge, nose pain, nose congestion, throat pain, throat swelling, mouth pain, mouth swelling, other Cardiovascular: Denies: no symptoms, chest pain, edema, irregular heart rate, lightheadedness, palpitations, syncope, other Respiratory: Denies: no symptoms, cough, orthopnea, shortness of breath, SOB with excertion, SOB at rest, sputum, stridor, wheezing, other Gastrointestinal/Abdominal: Denies: no symptoms, abdomen distended, abdominal pain, black stools, tarry stools, blood in stool, constipated, diarrhea, difficulty swallowing, nausea, poor appetite, poor fluid intake, rectal bleeding , vomiting, other Genitourinary: Denies: no symptoms, burning, discharge, frequency, flank pain, hematuria, incontinence, pain, urgency, other Endocrine: Denies: no symptoms, excessive sweating, flushing, intolerance to cold, intolerance to heat, increased hunger, increased thirst, increased urine, unexplained weight gain, unexplained weight loss, other Hematologic/Lymphatic: Denies: no symptoms, anemia, easy bleeding, easy bruising, other Allergies: Coded Allergies: No Known Allergies (Unverified , 11/06/18) Subjective 11/08: nonverbal, improved h/h, pending hd 11/10: no events, no fevers, no night sweats, avf is with positive thrill 11/11: getting tfs, tolerating well, colostomy bag in place, ++ nc Objective Last 24 Hour Vital Signs Date Time Temp Pulse Resp B/P (MAP) Pulse Ox O2 Delivery O2 Flow Rate FiO2 11/11/18 12:00 97.2 86 18 143/91 (108) 100 11/11/18 09:09 82 156/69 11/11/18 09:00 Nasal Cannula 3.0 11/11/18 08:00 98.4 82 20 156/69 (98) 96 11/11/18 08:00 100 11/11/18 04:20 87 11/11/18 03:47 97.8 82 20 141/70 (93) 99 11/11/18 00:00 97.6 75 18 125/89 (101) 11/11/18 00:00 97.6 75 18 125/89 (101) 11/11/18 00:00 76 11/10/18 21:00 Nasal Cannula 3.0 11/10/18 20:00 97.5 78 18 134/65 (88) 99 11/10/18 20:00 79 11/10/18 16:00 97.9 80 20 144/48 (80) 99 11/10/18 16:00 79 Intake and Output 11/10/18 11/11/18 19:00 07:00 Intake Total 40 ml Balance 40 ml Tube Feeding 40 ml Laboratory Tests 11/11/18 09:50: White Blood Count 13.6H, Red Blood Count 2.91L, Hemoglobin 8.7L, Hematocrit 27.2L, Mean Corpuscular Volume 93, Mean Corpuscular Hemoglobin 30.0, Mean Corpuscular Hemoglobin Concent 32.0, Red Cell Distribution Width 14.9H, Platelet Count 289, Mean Platelet Volume 5.4L, Neutrophils (%) (Auto) 82.5H, Lymphocytes (%) (Auto) 6.6L, Monocytes (%) (Auto) 7.8, Eosinophils (%) (Auto) 1.9, Basophils (%) (Auto) 1.3 Height (Feet): 4 Height (Inches): 11.00 Weight (Pounds): 94 Objective General Appearance: alert, Chronically Ill, nonverbal ENT: moist mucus membranes Neck: limited range of motion Respiratory: normal inspection, lungs clear Cardiovascular: normal inspection, regular rate, rhythm Gastrointestinal: normal inspection ++ colostomy bag Musculoskeletal: swelling - left upper extremity edema Neurologic: alert, motor weakness Psychiatric: normal inspection Skin: other - decubitus ulcer, +++ Avf with Jayden Perez MD Nov 11, 2018 13:32
--- NOTE | 2018-11-11 14:49 | NUR ---
NURSE NOTES:WOUND CARE FOLLOW-UP NOTES:Base of sacral wound hypergranular and pink. Moderate amt seropurulent exudate.No odor noted. (+)maceration along edges.Dark skin tone without erythema or induration periwound.(L)6cm x (W)7 cm. Both heels are firm and easily blanchable. No new skin concerns noted. Wound care provided. Wound cleansed with Saline.Therahoney applied then covered with Alginate.Triad moisture Barrier paste applied along edges and periwound and covered with Optifoam drsg.Cavilon Skin BArrier applied to each heel then each heel covered with Optifoam drsg. Pt has an APM/PROSPER matttress overlay and positioned on side with pillow and both heels floated off mattress. Tx.Plan:Cleanse Sacral wound with Saline.Apply Therahoney.Cover with Alginate.Apply Triad Paste to edges of wound and periwound.Cover with Optifoam drsg Daily and prn. Apply Cavilon Skin Barrier to both heels. Cover each heel with Optifoam drsg. Change every 7 days and prn. Reposition at least every 2hours or as tolerated. Off-Load heels with pillow. APM/PROSPER Mattress.
--- NOTE | 2018-11-11 15:24 | NUR ---
DISCHARGE PLANNING DISCHARGE ORDER NOTED [facility] [address] [place] [address] Bed:335-A Skilled for Nurse to Nurse report [facility] ETA for transportation: 16:00 DCP unable to reach family, voicemail message left of current discharge plans.
--- NOTE | 2018-11-11 17:04 | NUR ---
NURSE NOTES: Patient discharged to [facility] per Dr. Collier's order. Called SNF at 15:30 and report given to Eliecer (nursing paper machine supervisor). Heart monitor removed and returned to pest control chemical technician. IV removed. Wound picture taken and uploaded to patient's file. All belongings returned to patient. Patient left the hospital with [facility] and in stable condition.
[2018-11-11] MEDS ORDERED: Epoetin Alfa(ESRD on dialysis)10,000 unit/ml vial SUBQ SCH (21:00)
--- NOTE | 2018-11-12 15:15 | Discharge Summary ---
Discharge Summary Discharge Summary _ DATE OF ADMISSION: 11/06/2018 DATE OF DISCHARGE: 11/11/2018 DISCHARGED BY: REASON FOR ADMISSION: 58 years old female with past medical history of end-stage renal disease , on hemodialysis, hypertension, asthma, GERD, hyperlipidemia, heart failure, diabetes mellitus, depression, was sent to emergency room for AV fistula creation. due to malfunctioning of prior HD shunt. Patient had left groin temporary dialysis catheter. Patient usually dialyzed Sunday , Sunday and had dialysis prior to presentation to ED. Laboratory work-up revealed no leukocytosis , hemoglobin 7.0 ,hematocrit 21.4 , platelet count 213. Potassium 2.2. BUN 10, creatinine 0.8. Glucose 145. Troponin negative . EKG revealed sinus rhythm, no acute ischemic changes . patient admitted for further management with diagnoses of end-stage renal disease , hypokalemia, anemia, CONSULTANTS: vascular surgery Dr. Roger surgery Dr. Martin ferryboat pilot Dr. Dukes conservation biology professor Dr. Conte supervisor special effects/oncologist Dr. Hernandez HOSPITAL COURSE: Patient admitted to monitored floor. Vascular surgery and nephrology consults were requested. Patient undergone noninvasive vascular study of the upper extremity for vein mapping. Patient subsequently had a right brachiocephalic arteriovenous fistula creation. Potassium was replaced. Patient was transfused with 1 unit of packed red blood cells . Customer Experience Strategist followed for hemodialysis management. Volumes, renal parameters and electrolytes were closely monitored and corrected as needed. Patient started on Epogen. Hemoglobin and hematocrit were closely monitored Anemia work-up revealed evidence of anemia of chronic disease with ferritin 1283. Patient received transfusion of 1 units of packed red blood cells. Cargo Surveyor followed. Prior to discharge hemoglobin 8.7, hematocrit 27.2. CEA was within normal limits. Per supervisor special effects, patient had anemia of chronic disease due to underlying chronic medical issues and was multifactorial. Epogen was continued. Crozer Operator followed. Patient with history of diabetes mellitus, blood sugar was uncontrolled. Patient had on. E episode of hypoglycemia . Later patient developed hyperglycemia. Long-acting Levemir was added as per ferryboat pilot and sliding scale of short acting insulin was continued without basal insulin. Hemoglobin A1c 7.3 , nearly at goal. General surgeon closely followed for sacral decubitus ulcer stage III , present on admission. Wound care provided as per surgeon recommendation Continue wound care at the facility. Patient clinically stabilized and was ready for [facility] for [facility] of care. FINAL DIAGNOSES: Malfunctioning arteriovenous dialysis fistula End-stage renal disease on hemodialysis Status post right arteriovenous venous fistula creation Hypokalemia Anemia of chronic kidney disease Acute anemia, requiring blood transfusion Diabetes mellitus out of control Secondary hyperparathyroidism Sacral decubitus ulcer stage III p, resent on admission DISCHARGE MEDICATIONS: See Medication Reconciliation list. DISCHARGE INSTRUCTIONS: [facility]. Follow up with medical doctor at the facility. I have been assigned to dictate discharge summary for this account. I was not involved in the patient's management. Yashira Salgado NP Nov 12, 2018 15:15
== END 2018-11-11 17:18 | DRG 264 ==
LOC: EDBD 21:10 → EDBEDREQ 21:18 → EMR 22:20 → OBSVTOIN 22:29 → 2E 22:29 → EDBEDREQ 22:43
PROC: 031709D Bypass Right Brachial Artery to Upper Arm Vein with Autologous Venous Tissue, Open Approach (ICD-10-PCS; principal; 2018-11-07 09:00)
PROC: 30233N1 Transfusion of Nonautologous Red Blood Cells into Peripheral Vein, Percutaneous Approach (ICD-10-PCS; principal; 2018-11-07 09:00)
PROC: 5A1D70Z Performance of Urinary Filtration, Intermittent, Less than 6 Hours Per Day (ICD-10-PCS; 2018-11-11)
DX: T82.510A Breakdown (mechanical) of surgically created arteriovenous fistula, initial encounter (principal); L89.153 Pressure ulcer of sacral region, stage 3; N18.6 End stage renal disease; N25.81 Secondary hyperparathyroidism of renal origin; Z43.1 Encounter for attention to gastrostomy; I12.0 Hypertensive chronic kidney disease with stage 5 chronic kidney disease or end stage renal disease; Y83.8 Other surgical procedures as the cause of abnormal reaction of the patient, or of later complication, without mention of misadventure at the time of the procedure; Z99.2 Dependence on renal dialysis; E87.6 Hypokalemia; E11.22 Type 2 diabetes mellitus with diabetic chronic kidney disease; D63.1 Anemia in chronic kidney disease; E11.649 Type 2 diabetes mellitus with hypoglycemia without coma; G93.89 Other specified disorders of brain
CPT/HCPCS: 36415; 80048; 80053; 82378; 82728; 82962; 83010; 83036; 83540; 83550; 84132; 84484; 85007; 85025; 85044; 85060; 85384; 85610; 85660; 85730; 86850; 86900; 86901; 86920; 87081; 93005; 93922; 94003; 94150; 99285; J1815; J8499; S5561